=== PATIENT | female | born 1955 | race Caucasian/White ===

== ENCOUNTER 2021-01-21 08:09 | Outpatient (REF) | payer MEDICARE, SELFPAY ==
[2021-01-21 11:55] LABS: Hematocrit 37.1 % (37-47); Hemoglobin 11.9 g/dl (12.0-16.0); Mean Corpuscular HGB Conc 32.1 g/dl (31.0-35.0); Mean Corpuscular Hemoglobin 27.9 pg (27.0-33.0); Mean Corpuscular Volume 86.9 fL (80-98); Platelet Count 496 X10*3/uL (160-400); Red Blood Count 4.27 X10*6/uL (4.20-5.50); Red Cell Distribution Width 14.8 % (11.0-16.0); White Blood Count 6.3 X10*3/uL (4.8-10.8)
[2021-01-21 12:02] LABS: Alanine Aminotransferase 30 U/L (0-31); Albumin Level 4.3 g/dL (3.5-5.0); Alkaline Phosphatase 107 U/L (39-117); Anion Gap 12 (12-20); Aspartate Amino Transferase 24 U/L (5-31); Bilirubin Total 0.7 mg/dL (0.0-1.0); Blood Urea Nitrogen 8 mg/dL (9-16); Calcium 9.4 mg/dL (8.4-10.2); Carbon Dioxide 26 mmol/L (22-29); Chloride 105 mmol/L (96-108); Cholesterol 209 mg/dL; Estimated Glomerular Filt Rate > 60; Glucose Fasting 102 mg/dL (60-99); HDL Cholesterol 49 mg/dL; LDL Cholesterol Calculated 143 mg/dl; Potassium 4.7 mmol/L (3.3-5.1); Sodium 138 mmol/L (135-145); Total Protein 7.2 g/dL (6.5-8.0); Triglycerides 89 mg/dL
[2021-01-21 12:14] LABS: TSH reflex Free T4 1.95 uIU/mL (0.32-4.0); Vitamin D 25-OH Total 52.7 ng/mL (>30)
== END 2021-01-21 08:10 | disposition home or self-care (01) ==
LOC: HO.HMGCLDS 08:09
PROVIDERS: PCP Internal Medicine; Visit Provider Internal Medicine
DX: E55.9 Vitamin D deficiency, unspecified (principal); E78.5 Hyperlipidemia, unspecified
CPT/HCPCS: 36415; 80053; 80061; 82306; 84443; 85027

== ENCOUNTER 2021-07-16 09:05 | Outpatient (REF) | payer MEDICARE, SELFPAY ==
[2021-07-16 11:24] LABS: Hematocrit 38.2 % (37.0-47.0); Hemoglobin 12.2 g/dl (12.0-16.0); Mean Corpuscular HGB Conc 31.9 g/dl (31.0-35.0); Mean Corpuscular Hemoglobin 27.5 pg (27.0-33.0); Mean Corpuscular Volume 86.2 fL (80.0-98.0); Mean Platelet Volume 9.3 fL (9.4-12.3); Platelet Count 440 X10*3/uL (160-400); Red Blood Count 4.43 X10*6/uL (4.20-5.50); Red Cell Distribution Width 14.8 % (11.0-16.0); White Blood Count 7.6 X10*3/uL (4.8-10.8)
[2021-07-16 11:35] LABS: Alanine Aminotransferase 21 U/L (0-31); Albumin Level 4.2 g/dL (3.5-5.0); Alkaline Phosphatase 86 U/L (39-117); Anion Gap 13 (12-20); Aspartate Amino Transferase 20 U/L (5-31); Bilirubin Total 0.3 mg/dL (0.0-1.0); Blood Urea Nitrogen 10 mg/dL (9-16); Calcium 9.6 mg/dL (8.4-10.2); Carbon Dioxide 25 mmol/L (22-29); Chloride 104 mmol/L (96-108); Cholesterol 217 mg/dL; Estimated Glomerular Filt Rate > 60; Glucose Fasting 103 mg/dL (60-99); HDL Cholesterol 63 mg/dL; LDL Cholesterol Calculated 142 mg/dl; Potassium 4.6 mmol/L (3.3-5.1); Sodium 137 mmol/L (135-145); Total Protein 7.2 g/dL (6.5-8.0); Triglycerides 64 mg/dL
[2021-07-16 12:03] LABS: TSH reflex Free T4 1.89 uIU/mL (0.32-4.0)
== END 2021-07-16 09:06 | disposition home or self-care (01) ==
LOC: HO.HMGCLDS 09:05
PROVIDERS: Visit Provider Internal Medicine
DX: E55.9 Vitamin D deficiency, unspecified (principal); E78.5 Hyperlipidemia, unspecified; I10 Essential (primary) hypertension
CPT/HCPCS: 36415; 80053; 80061; 84443; 85027

== ENCOUNTER 2022-01-13 06:21 | Outpatient (REF) | payer MEDICARE, SELFPAY ==
[2022-01-13 11:47] LABS: Alanine Aminotransferase 33 U/L (0-31); Albumin Level 4.3 g/dL (3.5-5.0); Alkaline Phosphatase 101 U/L (39-117); Anion Gap 15 (12-20); Aspartate Amino Transferase 28 U/L (5-31); Bilirubin Total 0.2 mg/dL (0.0-1.0); Blood Urea Nitrogen 8 mg/dL (9-16); Calcium 9.2 mg/dL (8.4-10.2); Carbon Dioxide 25 mmol/L (22-29); Chloride 104 mmol/L (96-108); Cholesterol 174 mg/dL; Estimated Glomerular Filt Rate > 60; Glucose Fasting 107 mg/dL (60-99); HDL Cholesterol 49 mg/dL; LDL Cholesterol Calculated 111 mg/dl; Potassium 4.6 mmol/L (3.3-5.1); Sodium 139 mmol/L (135-145); Total Protein 7.2 g/dL (6.5-8.0); Triglycerides 74 mg/dL
== END 2022-01-13 06:22 | disposition home or self-care (01) ==
LOC: HO.HMGCLDS 06:21
PROVIDERS: PCP Internal Medicine; Visit Provider Internal Medicine
DX: E78.5 Hyperlipidemia, unspecified (principal); I10 Essential (primary) hypertension
CPT/HCPCS: 36415; 80053; 80061

== ENCOUNTER 2022-07-14 06:38 | Outpatient (REF) | payer MEDICARE, SELFPAY ==
[2022-07-14 11:27] LABS: MANUAL DIFF FLAG NO
[2022-07-14 11:37] LABS: Basophils Absolute Auto 0.1 X10*3/uL (0.0-0.2); Basophils Percent Auto 1.1 % (0-2); Eosinophils Absolute Auto 0.3 X10*3/uL (0.0-0.4); Eosinophils Percent Auto 3.6 % (0-4); Hematocrit 37.2 % (37.0-47.0); Hemoglobin 11.8 g/dl (12.0-16.0); Imm Gran Abs Auto 0.02 X10*3/uL (0.00-0.03); Imm Gran Pct Auto 0.3 % (0.0-0.4); Lymphocytes Absolute Auto 3.4 X10*3/uL (1.2-4.9); Lymphocytes Percent Auto 47.7 % (20-40); Mean Corpuscular HGB Conc 31.7 g/dl (31.0-35.0); Mean Corpuscular Hemoglobin 27.4 pg (27.0-33.0); Mean Corpuscular Volume 86.3 fL (80.0-98.0); Mean Platelet Volume 9.7 fL (9.4-12.3); Monocytes Absolute Auto 0.8 X10*3/uL (0.1-1.2); Monocytes Percent Auto 11.1 % (2-11); Neutrophils Absolute Auto 2.6 x10*3/uL (2.0-8.3); Neutrophils Percent Auto 36.2 % (45-73); Platelet Count 487 X10*3/uL (160-400); Red Blood Count 4.31 X10*6/uL (4.20-5.50); Red Cell Distribution Width 15.1 % (11.0-16.0); White Blood Count 7.2 X10*3/uL (4.8-10.8)
[2022-07-14 12:14] LABS: Creatinine Urine 79.42 mg/dL; Microalbum/Creatinine Ratio Ur 12.5 ug/mg cr
[2022-07-14 12:35] LABS: Estimated Average Glucose 128 mg/dL; Hemoglobin A1c % 6.1 %
[2022-07-14 12:40] LABS: Alanine Aminotransferase 29 U/L (0-31); Alkaline Phosphatase 101 U/L (39-117); Anion Gap 11 (12-20); Aspartate Amino Transferase 23 U/L (5-31); Bilirubin Total 0.3 mg/dL (0.0-1.0); Blood Urea Nitrogen 11 mg/dL (9-16); Calcium 9.3 mg/dL (8.4-10.2); Carbon Dioxide 27 mmol/L (22-29); Chloride 107 mmol/L (96-108); Cholesterol 185 mg/dL; Estimated Glomerular Filt Rate > 60; Glucose Fasting 103 mg/dL (60-99); HDL Cholesterol 54 mg/dL; LDL Cholesterol Calculated 118 mg/dl; Potassium 4.5 mmol/L (3.3-5.1); Sodium 140 mmol/L (135-145); Total Protein 6.6 g/dL (6.5-8.0); Triglycerides 67 mg/dL
[2022-07-14 12:45] LABS: TSH reflex Free T4 3.07 uIU/mL (0.32-4.0); Vitamin D 25-OH Total 61.2 ng/mL (>30)
== END 2022-07-14 06:39 | disposition home or self-care (01) ==
LOC: HO.HMGCLDS 06:38
PROVIDERS: PCP Internal Medicine; Visit Provider Internal Medicine
DX: E55.9 Vitamin D deficiency, unspecified (principal); E78.5 Hyperlipidemia, unspecified; M85.80 Other specified disorders of bone density and structure, unspecified site; R73.9 Hyperglycemia, unspecified
CPT/HCPCS: 36415; 80053; 80061; 82043; 82306; 83036; 84443; 85025

== ENCOUNTER 2023-01-19 07:00 | Outpatient (REF) | payer MEDICARE, SELFPAY ==
[2023-01-19 11:15] LABS: MANUAL DIFF FLAG NO
[2023-01-19 11:24] LABS: Basophils Absolute Auto 0.1 X10*3/uL (0.0-0.2); Basophils Percent Auto 0.9 % (0-2); Eosinophils Absolute Auto 0.2 X10*3/uL (0.0-0.4); Eosinophils Percent Auto 3.3 % (0-4); Hematocrit 37.2 % (37.0-47.0); Hemoglobin 11.9 g/dl (12.0-16.0); Imm Gran Abs Auto 0.01 X10*3/uL (0.00-0.03); Imm Gran Pct Auto 0.2 % (0.0-0.4); Lymphocytes Absolute Auto 3.3 X10*3/uL (1.2-4.9); Lymphocytes Percent Auto 52.8 % (20-40); Mean Corpuscular Hemoglobin 27.5 pg (27.0-33.0); Mean Corpuscular Volume 86.1 fL (80.0-98.0); Mean Platelet Volume 9.7 fL (9.4-12.3); Monocytes Absolute Auto 0.9 X10*3/uL (0.1-1.2); Monocytes Percent Auto 13.6 % (2-11); Neutrophils Absolute Auto 1.8 x10*3/uL (2.0-8.3); Neutrophils Percent Auto 29.2 % (45-73); Platelet Count 563 X10*3/uL (160-400); Red Blood Count 4.32 X10*6/uL (4.20-5.50); White Blood Count 6.3 X10*3/uL (4.8-10.8)
[2023-01-19 11:33] LABS: Estimated Average Glucose 123 mg/dL; Hemoglobin A1c % 5.9 % (<6.0)
[2023-01-19 11:39] LABS: Alanine Aminotransferase 26 U/L (0-31); Alkaline Phosphatase 90 U/L (39-117); Anion Gap 13 (12-20); Aspartate Amino Transferase 24 U/L (5-31); Bilirubin Total 0.4 mg/dL (0.0-1.0); Blood Urea Nitrogen 9 mg/dL (9-16); Calcium 9.4 mg/dL (8.4-10.2); Carbon Dioxide 25 mmol/L (22-29); Chloride 105 mmol/L (96-108); Cholesterol 179 mg/dL (<200); Estimated Glomerular Filt Rate > 60; Glucose Fasting 103 mg/dL (60-99); HDL Cholesterol 53 mg/dL (>40); LDL Cholesterol Calculated 110 mg/dL (<100); Potassium 4.2 mmol/L (3.3-5.1); Sodium 139 mmol/L (135-145); Total Protein 7.2 g/dL (6.5-8.0); Triglycerides 80 mg/dL (<150)
== END 2023-01-19 07:01 | disposition home or self-care (01) ==
LOC: HO.HMGCLDS 07:00
PROVIDERS: PCP Internal Medicine; Visit Provider Internal Medicine
DX: R73.9 Hyperglycemia, unspecified (principal); E78.5 Hyperlipidemia, unspecified
CPT/HCPCS: 36415; 80053; 80061; 83036; 85025

== ENCOUNTER 2023-01-27 07:54 | Outpatient (AMB) | payer MEDICARE, SELFPAY ==
[2023-01-27 08:09] VITALS: BP 130/70; PULSE 63; O2SAT 99; BMI 28.3
--- NOTE | 2023-01-27 08:09 | MHC.PC.OV ---
Vital Signs 01/27/23 08:09 Height 4 ft 11 in Weight 140 lb BMI 28.3 BP 130/70 Blood Pressure Location Lt brachial Position Sitting Pulse 63 Pulse Source Pulse Oximeter Pulse Oximetry (%) 99 Oxygen Delivery Method Room Air Intake Visit Reasons: Annual Physical Intake Note: Pt is here today for PE. Allergies wheat Allergy (Mild, Verified 01/27/23 08:12) Ciliac disease pravastatin Adverse Reaction (Verified 01/27/23 08:12) headaches Medication List - Last Reconciled 01/27/23 by Nasrin Vidal MD atorvastatin 20 mg PO DAILY magnesium 250 mg PO DAILY meloxicam 15 mg PO DAILY PRN Tobacco use date assessed: 01/27/23 Fall risk assessment: No Falls in past year Last assessed Fall Risk: 01/27/23 Dental Screening Dental Screen Date: 01/27/23 Did you have a dental visit in the last 12 months?: Yes Did you have a dental problem in the last 6 months where you did not have access to dental care?: No Was dental information given to patient?: Patient has dentist HPI Annual Physical HPI Details Pt presents for PE. She complains of chronic left hand tingling and numbness when holding a book or driving. 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 Patient had right carpal tunnel surgery a few years ago. [facility] Medical History Abnormal mammogram of both breasts Annual physical exam Bladder incontinence Hyperlipidemia Arthralgia Postmenopausal Osteopenia Vitamin D deficiency Degenerative joint disease (DJD) of lumbar spine Normal Pap smear Mammogram normal Normal colonoscopy Adult celiac disease Surgical History History of bladder suspension procedure Knee joint replacement status History of carpal tunnel surgery H/O rotator cuff surgery History of left knee replacement Family History Mother Diabetes Breast cancer Father Heart problem Social History Household Members Other:: , 3 daughters, works as a payroll secretary in [employer] Housing: House Patient Tobacco Use Status: Former Tobacco user Quit Date: 1983 e-Cigarette/Vaping Use: Never Used Current occupational status: retired Cognitive needs: No Hearing needs: No Vision needs: Yes Questionnaire PHQ-9 Over the last 2 weeks, how often have you been bothered by any of the following problems? 1. Little interest or pleasure in doing things: not at all 2. Feeling down, depressed, or hopeless: not at all 3. Trouble falling or staying asleep, or sleeping too much: not at all 4. Feeling tired or having little energy: not at all 5. Poor appetite or overeating: not at all 6. Feeling bad about yourself - or that you are a failure or have let yourself or your family down: not at all 7. Trouble concentrating on things, such as reading the newspaper or watching television: not at all 8. Moving or speaking so slowly that other people could have noticed. Or the opposite - being so fidgety or restless that you have been moving around a lot more than usual: not at all 9. Thoughts that you would be better off or of hurting yourself in some way: not at all Total score: 0 Depression Screening Interpretation: Negative Depression Screening Done: Yes Source: Developed by Drs. Rey Curtis, Joanie Caraballo, Malick Millan and colleagues, with an educational celia from [employer]. Thrive Questionnaire Date Thrive assessed: 01/27/23 I am a: Patient What is your living situation today?: I have a steady place to live Within the past 12 months, did the food you bought not last and you didn't have the money to get more?: Never true Within the past 12 months, did you worry whether your food would run out before you got money to buy more?: Never true Do you have trouble paying for medicines?: No Do you have trouble getting transportation to medical appointments?: No Do you have trouble paying your heating and electricity bill?: No Do you have trouble taking care of your child, family member or friend?: No Do you have trouble with day-to-day activities such as bathing, preparing meals, shopping, managing finances, etc.?: No Are you currently unemployed and looking for a job?: No Are you interested in more education?: No Please select the resources that you would like help with: None CHRISTOPH-7 AMB Questionnaire CHRISTOPH-7 Date CHRISTOPH - 7 assessed: 01/27/23 Feeling nervous, anxious, or on edge: 0 = Not at all Not being able to stop or control worryin = Not at all Worrying too much about different things: 0 = Not at all Trouble relaxin = Not at all Being so restless that it is hard to sit still: 0 = Not at all Becoming easily annoyed or irritable: 0 = Not at all Feeling afraid as if something awful might happen: 0 = Not at all Total CHRISTOPH-7 score (0-4 normal; 5-9 mild; 10-14 moderate; 15-21 severe): 0 Source: Developed by Drs. Rey Curtis, Joanie Caraballo, Malick Millan and colleagues, with an educational celia from [employer]. Review of Systems Const All systems reviewed & are unremarkable except as noted in HPI and below Reports no additional complaints Eyes Reports no additional complaints ENT Reports no additional complaints Card Reports no additional complaints Resp Reports no additional complaints GI Reports no additional complaints Reports no additional complaints Musc Reports no additional complaints Physical exam (Primary Care) Vital Signs: Last Vital Signs Pulse 63 01/27/23 08:09 BP 140/70 H 01/27/23 08:09 Pulse Ox 99 01/27/23 08:09 Oxygen Delivery Method Room Air 01/27/23 08:09 BMI result Body Mass Index 28.3 Tobacco/Smoking Status: Tobacco use Status Tobacco use date assessed 01/27/23 01/27/23 08:14 Patient Tobacco Use Status Former Tobacco user 01/27/23 08:09 e-Cigarette/Vaping Use Never Used 01/27/23 08:14 PHQ-9: PHQ-9 Score PHQ-9: Total score 0 01/27/23 08:16 Depression Screening Interpretation: Negative Thrive Assessment: Date of Thrive Assessment Date Thrive assessed 01/27/23 01/27/23 08:16 Const General: no acute distress HENMT Ears: hearing grossly normal bilaterally Mouth: Normal oral and palatal mucosa present Eyes General: appearance normal, both eyes and all related structures Resp Effort & Inspection: normal respiratory effort Auscultation: clear to auscultation bilaterally Cardio Rhythm: regular rhythm Heart sounds: S1 normal heart sound present and S2 normal heart sound present GI Inspection: Yes normal to inspection Palpation (GI): Soft to palpation Percussion: Yes normal to percussion Auscultation: normal bowel sounds Neuro Sensory Exam: Upper extremity sensory exam abnormal (L wrist Tinel positive) Extrem General: Yes no clubbing, cyanosis or edema Left upper extremity: wrist (Phalen's positive L wrist) Assessment and Plan Assessment & Plan (1) Carpal tunnel syndrome of left wrist: Code(s): G56.02 - Carpal tunnel syndrome, left upper limb Plan: Refer for nerve conduction study, wearing wrist splint at night was recommended (2) Annual physical exam: Code(s): Z00.00 - Encounter for general adult medical examination without abnormal findings Plan: Well-balanced diet and regular physical activity discussed with the patient (3) Hyperlipidemia: Comment: Patient cannot tolerate multiple statins. She can tolerate atorvastatin QOD Code(s): E78.5 - Hyperlipidemia, unspecified Plan: Continue atorvastatin (4) Hyperglycemia: Code(s): R73.9 - Hyperglycemia, unspecified Plan: A1c is 5.9, continue ADA diet regular exercise and weight loss (5) Mammogram normal: Comment: 2020Alicia (6) Normal colonoscopy: Comment: at 61 Orders: Orders NE nerve conduction velocity Today G56.02 - Carpal tunnel syndrome, left upper limb Comprehensive Met. Panel 365 Days E78.5 - Hyperlipidemia, unspecified, R73.9 - Hyperglycemia, unspecified, Z00.00 - Encounter for general adult medical examination without abnormal findings Lipid Panel 365 Days E78.5 - Hyperlipidemia, unspecified, R73.9 - Hyperglycemia, unspecified, Z00.00 - Encounter for general adult medical examination without abnormal findings Complete Blood Count Auto Diff 365 Days E78.5 - Hyperlipidemia, unspecified, R73.9 - Hyperglycemia, unspecified, Z00.00 - Encounter for general adult medical examination without abnormal findings Microalbumin, Random (w Creat) 365 Days E78.5 - Hyperlipidemia, unspecified, R73.9 - Hyperglycemia, unspecified, Z00.00 - Encounter for general adult medical examination without abnormal findings Hemoglobin A1c 365 Days E78.5 - Hyperlipidemia, unspecified, R73.9 - Hyperglycemia, unspecified, Z00.00 - Encounter for general adult medical examination without abnormal findings TSH reflex Free T4 365 Days E78.5 - Hyperlipidemia, unspecified, R73.9 - Hyperglycemia, unspecified, Z00.00 - Encounter for general adult medical examination without abnormal findings Coding Level of Care Code Est Pt Prev Care >65y(25610) Diagnoses Carpal tunnel syndrome of left wrist G56.02 Annual physical exam Z00.00 Hyperlipidemia E78.5 Hyperglycemia R73.9 Mammogram normal Normal colonoscopy
== END 2023-01-27 08:53 | disposition home or self-care (01) ==
PROVIDERS: Visit Provider Internal Medicine
DX: G56.02 Carpal tunnel syndrome, left upper limb (principal); Z00.00 Encounter for general adult medical examination without abnormal findings; E78.5 Hyperlipidemia, unspecified; R73.9 Hyperglycemia, unspecified
CPT/HCPCS: 99397

== ENCOUNTER 2023-02-10 08:52 | Outpatient (REF) | payer MEDICARE, SELFPAY ==
--- NOTE | 2023-02-10 09:05 | EMG_ITS ---
Left median and ulnar motor and sensory studies were performed. Left radial and median and lateral antecubital brachial sensory studies were performed and needle examination was performed. IMPRESSION: Mild to moderate left median neuropathy across carpal tunnel. MD BRAEDEN Prieto/ALLEY / [phone]
== END 2023-02-10 08:53 | disposition home or self-care (01) ==
LOC: HO.NEURO 08:52
PROVIDERS: Visit Provider Internal Medicine
DX: G56.02 Carpal tunnel syndrome, left upper limb (principal)
CPT/HCPCS: 95886; 95910

== ENCOUNTER 2023-11-12 09:23 | Outpatient (AMB) | payer MEDICARE, SELFPAY ==
[2023-11-12 11:23] VITALS: BP 150/80; PULSE 65; TEMP 36.6; O2SAT 96
--- NOTE | 2023-11-12 11:23 | AM.OFFWIN_ITS ---
Intake Vital Signs 11/12/23 11:23 Height 4 ft 11 in BP 150/80 H Blood Pressure Location Lt brachial Position Sitting Pulse 65 Pulse Source Pulse Oximeter Temp 97.8 F Temp Source Temporal Artery Scan Pulse Oximetry (%) 96 Oxygen Delivery Method Room Air Intake Visit Reasons: EP RT knee injury Intake Note: pt is here for right knee pain due to injury Patient Tobacco Use Status: Former Tobacco user Allergies wheat Allergy (Mild, Verified 11/12/23 11:24) Ciliac disease pravastatin Adverse Reaction (Verified 11/12/23 11:24) headaches Do you need a note to return to daycare/school/sports/work: No HPI EP RT knee injury HPI Details Patient is is a 68-year-old female comes to the walk-in clinic complaining of right knee pain that just started this morning. She reports a sharp sensation to the upper aspect of the right knee upon getting out of bed, when flexing the extremity. She has only minimal discomfort when bearing weight on the extremity, however flexion greater than 90 degrees increases her pain. She denies injury to the knee or any out of ordinary trauma to the knee that occurred yesterday or prior to this. She does report some likely degenerative issues, and reports left knee replacement 5 years ago. No medication, heating or icing, elevation or other treatment. No swelling or warmth, redness, fever or chills, weakness or dizziness, or other significant associated symptoms. [facility] [place] Medical History Abnormal mammogram of both breasts Annual physical exam Bladder incontinence Hyperlipidemia Arthralgia Postmenopausal Osteopenia Vitamin D deficiency Degenerative joint disease (DJD) of lumbar spine Normal Pap smear Mammogram normal Normal colonoscopy Adult celiac disease Surgical History History of bladder suspension procedure Knee joint replacement status History of carpal tunnel surgery H/O rotator cuff surgery History of left knee replacement Family History Mother Diabetes Breast cancer Father Heart problem Social History Household Members Other:: , 3 daughters, works as a clerk secretary in [employer] Housing: House Patient Tobacco Use Status: Former Tobacco user e-Cigarette/Vaping Use: Never Used Current occupational status: retired Cognitive needs: No Hearing needs: No Vision needs: Yes Review of Systems Const All systems reviewed & are unremarkable except as noted in HPI and below Physical Exam Vital Signs: Last Vital Signs Temp 97.8 F 11/12/23 11:23 Pulse 65 11/12/23 11:23 BP 150/80 H 11/12/23 11:23 Pulse Ox 96 11/12/23 11:23 Oxygen Delivery Method Room Air 11/12/23 11:23 Extrem Other: Patient has no visible trauma to the right knee, and there is no edema erythema or warmth to the right knee or calf or lower leg area. No palpable cord in the calf, or mass to the right upper or lower leg. She has full extension, but limited flexion to 90 degrees due to end range tenderness to the inner knee. Anterior and posterior drawer tests are negative, and there is no instability with varus or valgus stress. She has no pain to palpation of the patellar ligament, anterior joint line, or posterior joint line, or medial or lateral joint line, or adjacent on both sides to the patella, with no patellar tenderness. She has no cyanosis or edema or other color changes, and she is neurovascularly intact distally with no pedal edema, and gait is nonantalgic. Assessment & Plan Assessment & Plan (1) Right knee pain: Code(s): M25.561 - Pain in right knee Qualifiers: Chronicity: acute Qualified Code(s): M25.561 - Pain in right knee Plan Patient is a 68-year-old female comes to the walk-in clinic complaining of acute right knee pain that just started this morning. She reports a sharp sensation to the upper aspect of the right knee upon getting out of bed. She has only minimal discomfort when bearing weight on the extremity, however flexion greater than 90 degrees increases her pain. There is no instability noted to the joint, and no redness erythema warmth or swelling or palpable cord or mass to the area or surrounding area that would indicate a DVT or muscle injury. Plain film x- ray shows no acute injury, but mild to moderate degenerative changes are noted. I think she might have a flare-up of arthritis that is the likely etiology for symptoms. She might benefit from a course of meloxicam, which I wrote for her today. She declined Raymond wrap to the joint, but states that she has an elastic sleeve brace that she can use when she gets home. She prefers to follow up with her primary care to discuss MRI, or she might be a candidate for physical the rapy. I advised that she monitor it and follow up emergency if she develops any swelling, erythema or edema to the joint or left lower leg, or other worrisome symptoms. Orders: Orders XR knee RT 4V 11/12/23 M25.561 - Pain in right knee Medications: New meloxicam take with food 15 mg PO DAILY 30 tabs 0RF Coding Level of Care Code Est Pt Level 4 (53355) Diagnoses Acute pain of right knee M25.561 Chronicity: acute
== END 2023-11-12 15:05 | disposition home or self-care (01) ==
PROVIDERS: PCP Internal Medicine; Visit Provider Physician Assistant Medical
DX: M25.561 Pain in right knee (principal)
CPT/HCPCS: 99051; 99214

== ENCOUNTER 2023-11-12 12:05 | Outpatient (REF) | payer MEDICARE, SELFPAY ==
--- NOTE | ~2023-11-12 | XR_ITS ---
EXAMINATION: XR KNEE, RIGHT CLINICAL INFORMATION: Pain in the right knee. COMPARISON: None available. TECHNIQUE: AP, lateral, and both oblique views of the right knee. FINDINGS: Bones are osteopenic. Moderate patellofemoral compartment osteoarthritis with joint space narrowing marginal osteophytes. More mild osteoarthritis in the lateral and medial compartments. No fractures. No joint effusion. Soft tissues are unremarkable. XR/XR knee RT 4V IMPRESSION: Moderate patellofemoral compartment osteoarthritis. More mild osteoarthritis in the medial and lateral compartments.
== END 2023-11-12 12:06 | disposition home or self-care (01) ==
LOC: HO.HMGCX 12:05
PROVIDERS: PCP Internal Medicine; Visit Provider Physician Assistant Medical
DX: M25.561 Pain in right knee (principal)
CPT/HCPCS: 73564

== ENCOUNTER 2024-01-19 06:16 | Outpatient (REF) | payer MEDICARE, SELFPAY ==
[2024-01-19 10:13] LABS: MANUAL DIFF FLAG NO
[2024-01-19 10:19] LABS: Basophils Absolute Auto 0.1 X10*3/uL (0.0-0.2); Basophils Percent Auto 1.1 % (0-2); Eosinophils Absolute Auto 0.3 X10*3/uL (0.0-0.4); Eosinophils Percent Auto 4.5 % (0-4); Hematocrit 38.2 % (37.0-47.0); Hemoglobin 12.2 g/dl (12.0-16.0); Imm Gran Abs Auto 0.02 X10*3/uL (0.00-0.03); Imm Gran Pct Auto 0.3 % (0.0-0.4); Lymphocytes Absolute Auto 3.3 X10*3/uL (1.2-4.9); Lymphocytes Percent Auto 44.1 % (20-40); Mean Corpuscular HGB Conc 31.9 g/dl (31.0-35.0); Mean Corpuscular Volume 87.8 fL (80.0-98.0); Mean Platelet Volume 9.6 fL (9.4-12.3); Monocytes Absolute Auto 0.9 X10*3/uL (0.1-1.2); Monocytes Percent Auto 11.8 % (2-11); Neutrophils Absolute Auto 2.9 x10*3/uL (2.0-8.3); Neutrophils Percent Auto 38.2 % (45-73); Platelet Count 537 X10*3/uL (160-400); Red Blood Count 4.35 X10*6/uL (4.20-5.50); Red Cell Distribution Width 15.3 % (11.0-16.0); White Blood Count 7.5 X10*3/uL (4.8-10.8)
[2024-01-19 11:04] LABS: Estimated Average Glucose 126 mg/dL; Hemoglobin A1C 128.6482 umol/L; Total Hemoglobin (HGBA1C) 3087.6064 umol/L
[2024-01-19 11:06] LABS: Alanine Aminotransferase 22 U/L (0-31); Albumin Level 4.1 g/dL (3.5-5.0); Alkaline Phosphatase 89 U/L (39-117); Anion Gap 11 (12-20); Aspartate Amino Transferase 22 U/L (5-31); Bilirubin Total 0.3 mg/dL (0.0-1.0); Blood Urea Nitrogen 10 mg/dL (9-16); Calcium 9.4 mg/dL (8.4-10.2); Carbon Dioxide 27 mmol/L (22-29); Chloride 106 mmol/L (96-108); Cholesterol 165 mg/dL (<200); Estimated Glomerular Filt Rate > 60; Glucose Random 98 mg/dL (60-115); HDL Cholesterol 55 mg/dL (>40); LDL Cholesterol Calculated 97 mg/dL (<100); Sodium 140 mmol/L (135-145); Total Protein 7.1 g/dL (6.5-8.0); Triglycerides 65 mg/dL (<150)
[2024-01-19 11:21] LABS: Creatinine Urine 56.49 mg/dL; Microalbumin Urine < 5.0 mg/L
[2024-01-19 11:26] LABS: TSH reflex Free T4 3.11 uIU/mL (0.32-4.0)
== END 2024-01-19 06:17 | disposition home or self-care (01) ==
LOC: HO.HMGCLDS 06:16
PROVIDERS: PCP Internal Medicine; Visit Provider Internal Medicine
DX: Z00.00 Encounter for general adult medical examination without abnormal findings (principal); E78.5 Hyperlipidemia, unspecified; R73.9 Hyperglycemia, unspecified
CPT/HCPCS: 36415; 80053; 80061; 82043; 82570; 83036; 84443; 85025

== ENCOUNTER 2024-01-31 08:02 | Outpatient (AMB) | payer MEDICARE, SELFPAY ==
--- NOTE | 2024-01-31 08:04 | MHC.PC.OV ---
Vital Signs 01/31/24 08:05 Height 4 ft 11 in Weight 128 lb BMI 25.9 BP 128/66 Blood Pressure Location Rt brachial Position Sitting Pulse 71 Pulse Source Pulse Oximeter Pulse Oximetry (%) 97 Oxygen Delivery Method Room Air Intake Visit Reasons: Annual PE Intake Note: Pt is here today for PE. Allergies wheat Allergy (Mild, Verified 01/31/24 08:07) Ciliac disease pravastatin Adverse Reaction (Verified 01/31/24 08:07) headaches Medication List - Last Reconciled 01/31/24 by Nasrin Vidal MD atorvastatin 20 mg PO DAILY magnesium 250 mg PO DAILY meloxicam 15 mg PO DAILY Tobacco use date assessed: 01/31/24 Fall risk assessment: 1 Fall in past year Last assessed Fall Risk: 01/31/24 Dental Screening Dental Screen Date: 01/31/24 Did you have a dental visit in the last 12 months?: Yes Did you have a dental problem in the last 6 months where you did not have access to dental care?: No Was dental information given to patient?: Patient has dentist HPI Annual PE HPI Details Pt presents for PE. [facility] Medical History Abnormal mammogram of both breasts Annual physical exam Bladder incontinence Hyperlipidemia Arthralgia Postmenopausal Osteopenia Vitamin D deficiency Degenerative joint disease (DJD) of lumbar spine Normal Pap smear Mammogram normal Normal colonoscopy Adult celiac disease Surgical History History of bladder suspension procedure Knee joint replacement status History of carpal tunnel surgery H/O rotator cuff surgery History of left knee replacement Family History Mother Diabetes Breast cancer Father Heart problem Social History Household Members Other:: , 3 daughters, works as a sales secretary in [employer] Housing: House Patient Tobacco Use Status: Former Tobacco user e-Cigarette/Vaping Use: Never Used service: No Current occupational status: retired Cognitive needs: No Hearing needs: No Vision needs: Yes Questionnaire PHQ-9 Over the last 2 weeks, how often have you been bothered by any of the following problems? 1. Little interest or pleasure in doing things: not at all 2. Feeling down, depressed, or hopeless: not at all 3. Trouble falling or staying asleep, or sleeping too much: not at all 4. Feeling tired or having little energy: not at all 5. Poor appetite or overeating: not at all 6. Feeling bad about yourself - or that you are a failure or have let yourself or your family down: not at all 7. Trouble concentrating on things, such as reading the newspaper or watching television: not at all 8. Moving or speaking so slowly that other people could have noticed. Or the opposite - being so fidgety or restless that you have been moving around a lot more than usual: not at all 9. Thoughts that you would be better off or of hurting yourself in some way: not at all Total score: 0 Depression Screening Interpretation: Negative Depression Screening Done: Yes [id number] - PHQ-9 Billing: Yes Source: Developed by Drs. Rey Curtis, Joanie Caraballo, Malick Millan and colleagues, with an educational celia from [employer] [place]. Thrive Questionnaire Date Thrive assessed: 01/31/24 I am a: Patient What is your living situation today?: I have a steady place to live Within the past 12 months, did the food you bought not last and you didn't have the money to get more?: Never true Within the past 12 months, did you worry whether your food would run out before you got money to buy more?: Never true Do you have trouble paying for medicines?: No Do you have trouble getting transportation to medical appointments?: No Do you have trouble paying your heating and electricity bill?: No Do you have trouble taking care of your child, family member or friend?: No Do you have trouble with day-to-day activities such as bathing, preparing meals, shopping, managing finances, etc.?: No Are you currently unemployed and looking for a job?: No Are you interested in more education?: No Please select the resources that you would like help with: None Currently or been in a relationship where the following occur: No concerns reported THRIVE Score: 0 AUDIT C Alcohol Use Questionnaire (AUDIT-C) 1. How often do you have a drink containing alcohol?: Never 3. How often do you have six or more drinks on one occasion?: Never Total Score: 0 CHRISTOPH-7 AMB Questionnaire CHRISTOPH-7 Date CHRISTOPH - 7 assessed: 01/31/24 Feeling nervous, anxious, or on edge: 0 = Not at all Not being able to stop or control worryin = Not at all Worrying too much about different things: 0 = Not at all Trouble relaxin = Not at all Being so restless that it is hard to sit still: 0 = Not at all Becoming easily annoyed or irritable: 0 = Not at all Feeling afraid as if something awful might happen: 0 = Not at all Total CHRISTOPH-7 score (0-4 normal; 5-9 mild; 10-14 moderate; 15-21 severe): 0 Source: Developed by Drs. Rey Curtis, Joanie Caraballo, Malick Millan and colleagues, with an educational celia from [employer] [place]. CHRISTOPH-7 Assessment Billing CHRISTOPH-7 Assessment Tool: CHRISTOPH-7 Assessment 77670 Review of Systems Const All systems reviewed & are unremarkable except as noted in HPI and below Eyes Reports no additional complaints ENT Reports no additional complaints Card Reports no additional complaints Resp Reports no additional complaints GI Reports no additional complaints Reports no additional complaints Physical exam (Primary Care) Vital Signs: Last Vital Signs Pulse 71 01/31/24 08:05 BP 128/66 01/31/24 08:05 Pulse Ox 97 01/31/24 08:05 Oxygen Delivery Method Room Air 01/31/24 08:05 BMI result Body Mass Index 25.9 Tobacco/Smoking Status: Tobacco use Status Tobacco use date assessed 01/31/24 01/31/24 08:13 Patient Tobacco Use Status Former Tobacco user 01/31/24 08:13 e-Cigarette/Vaping Use Never Used 01/31/24 08:13 PHQ-9: PHQ-9 Score PHQ-9: Total score 0 01/31/24 08:13 Depression Screening Interpretation: Negative Thrive Assessment: Date of Thrive Assessment Date Thrive assessed 01/31/24 01/31/24 08:13 Currently or been in a relationship where the following occur: No concerns reported Const General: no acute distress HENMT Head: Yes normal to inspection Ears: hearing grossly normal bilaterally Mouth: Normal oral and palatal mucosa present Throat: Yes posterior oropharynx normal Eyes General: appearance normal, both eyes and all related structures Neck Neck: Yes no lymphadenopathy and Yes supple Resp Effort & Inspection: normal respiratory effort Auscultation: clear to auscultation bilaterally Cardio Rhythm: regular rhythm Heart sounds: S1 normal heart sound present and S2 normal heart sound present GI Inspection: Yes normal to inspection Palpation (GI): Soft to palpation Percussion: Yes normal to percussion Auscultation: normal bowel sounds Coding Level of Care Code Est Pt Prev Care >65y(88348) Diagnoses Osteopenia M85.80 Annual physical exam Z00.00 Hyperglycemia R73.9 Hyperlipidemia E78.5 Postmenopausal Z78.0 Vitamin D deficiency E55.9 Additional Codes CHRISTOPH-7 Assessment Billing - CHRISTOPH-7 Assessment Tool: CHRISTOPH-7 Assessment [id number] ([id number]) Assessment & Plan Assessment & Plan (1) Osteopenia: Comment: DEXA 2020 Code(s): M85.80 - Other specified disorders of bone density and structure, unspecified site Category: Medical Plan: PATIENT WILL SCHEDULE DEXA (2) Annual physical exam: Code(s): Z00.00 - Encounter for general adult medical examination without abnormal findings Category: Medical Plan: Well-balanced diet regular physical activity discussed with the patient. She is up-to-date with colonoscopy and mammogram (3) Hyperglycemia: Code(s): R73.9 - Hyperglycemia, unspecified Category: Medical Plan: A1c is 6.0, ADA diet increase physical activity discussed with the patient (4) Hyperlipidemia: Comment: Patient cannot tolerate multiple statins. She can tolerate atorvastatin QOD Code(s): E78.5 - Hyperlipidemia, unspecified Category: Medical Plan: cont statin (5) Postmenopausal: Code(s): Z78.0 - Asymptomatic menopausal state Category: Medical Plan: check DEXA (6) Vitamin D deficiency: Code(s): E55.9 - Vitamin D deficiency, unspecified Category: Medical Plan: Continue vitamin D3 Orders: Orders XR DEXA axial skeleton Today M85.80 - Other specified disorders of bone density and structure, unspecified site, Z78.0 - Asymptomatic menopausal state Comprehensive [place]. Panel Fast 1 Year E55.9 - Vitamin D deficiency, unspecified, E78.5 - Hyperlipidemia, unspecified, R73.9 - Hyperglycemia, unspecified, Z00.00 - Encounter for general adult medical examination without abnormal findings Lipid Panel 1 Year E55.9 - Vitamin D deficiency, unspecified, E78.5 - Hyperlipidemia, unspecified, R73.9 - Hyperglycemia, unspecified, Z00.00 - Encounter for general adult medical examination without abnormal findings TSH reflex Free T4 1 Year E55.9 - Vitamin D deficiency, unspecified, E78.5 - Hyperlipidemia, unspecified, R73.9 - Hyperglycemia, unspecified, Z00.00 - Encounter for general adult medical examination without abnormal findings Complete Blood Count Auto Diff 1 Year E55.9 - Vitamin D deficiency, unspecified, E78.5 - Hyperlipidemia, unspecified, R73.9 - Hyperglycemia, unspecified, Z00.00 - Encounter for general adult medical examination without abnormal findings Vitamin D 25-OH Total 1 Year E55.9 - Vitamin D deficiency, unspecified, E78.5 - Hyperlipidemia, unspecified, R73.9 - Hyperglycemia, unspecified, Z00.00 - Encounter for general adult medical examination without abnormal findings Hemoglobin A1c 1 Year E55.9 - Vitamin D deficiency, unspecified, E78.5 - Hyperlipidemia, unspecified, R73.9 - Hyperglycemia, unspecified, Z00.00 - Encounter for general adult medical examination without abnormal findings
[2024-01-31 08:05] VITALS: BP 128/66; PULSE 71; O2SAT 97; BMI 25.9
== END 2024-01-31 08:54 | disposition home or self-care (01) ==
LOC: HO.HMCC 08:03
PROVIDERS: PCP Internal Medicine; Visit Provider Internal Medicine
DX: M85.80 Other specified disorders of bone density and structure, unspecified site (principal); Z00.00 Encounter for general adult medical examination without abnormal findings; R73.9 Hyperglycemia, unspecified; E78.5 Hyperlipidemia, unspecified; Z78.0 Asymptomatic menopausal state; E55.9 Vitamin D deficiency, unspecified

== ENCOUNTER → 2024-01-31 08:02 | Outpatient (BNVA) | payer MEDICARE, SELFPAY | PROVIDERS: PCP Internal Medicine; Visit Provider Internal Medicine | DX: Z00.01 Encounter for general adult medical examination with abnormal findings (principal); M85.80 Other specified disorders of bone density and structure, unspecified site; R73.9 Hyperglycemia, unspecified; E78.5 Hyperlipidemia, unspecified; E55.9 Vitamin D deficiency, unspecified; Z78.0 Asymptomatic menopausal state | CPT/HCPCS: 96127; 99397 ==

== ENCOUNTER 2025-01-30 06:16 | Outpatient (REF) | payer MEDICARE, SELFPAY ==
--- OUTSIDE RECORDS SUMMARY | 2025-01-30 06:20 | XMS_ITS ---
Author Name [facility] Organization Unknown History of Medication Use Medication Directions Dispensed Refills Start Date End Date [facility] meloxicam 15 mg tablet Take 1 tablet every day by oral route as needed, for pain. 12/30/2023 active acetaminophen 500 mg tablet TAKE 1 TABLET BY MOUTH EVERY 6 TO 8 HOURS NEEDED FOR PAIN 4 completed azithromycin 250 mg tablet TAKE 2 TABLETS BY MOUTH FOR 1 DAY THEN TAKE 1 TABLET BY MOUTH DAILY FOR 4 DAYS 4 completed ibuprofen 600 mg tablet TAKE 1 TABLET BY MOUTH THREE TIMES DAILY WITH MEALS. MAX 2400 MG DAILY 4 completed oxycodone 5 mg tablet TAKE 1 TABLET BY MOUTH EVERY 6 HOURS NEEDED FOR PAIN 4 completed prednisone 20 mg tablet TAKE 1 TABLET BY MOUTH TWICE DAILY FOR 5 DAYS 4 completed sulfamethoxazole 400 mg-trimethoprim 80 mg tablet TAKE 1 TABLET BY MOUTH TWICE DAILY FOR 5 DAYS 4 completed meloxicam 15 mg tablet active albuterol sulfate HFA 90 mcg/actuation aerosol inhaler active amoxicillin 500 mg tablet TAKE 4 TABLETS BY MOUTH 1 HOUR BEFORE DENTAL APPOINTMENT active atorvastatin 20 mg tablet TAKE 1 TABLET BY MOUTH DAILY active Problems Problem Status Onset Date Problem Type Date of Resoluti on Source Closed fracture of tibial tuberosity active 2023-12-30 ProblemAct [facility] Pain of right knee region active 2023-11-29 ProblemAct [facility] Pain of left knee joint active 2022-12-22 ProblemAct [facility] Encounters Encounter Type Encounter Reason Primary Diagnosis Location Date Ambulatory [facility] 04/13/2024 Ambulatory [facility] 03/09/2024 Ambulatory [facility] 02/06/2024 Ambulatory [facility] 02/03/2024 Ambulatory [facility] 02/03/2024 Ambulatory [facility] 02/03/2024 Ambulatory [facility] 01/02/2024 Ambulatory [facility] 12/30/2023 Ambulatory [facility] 12/30/2023 Ambulatory [facility] 12/29/2023 Ambulatory [facility] 12/28/2023 Ambulatory [facility] 11/30/2023 Ambulatory [facility] 11/29/2023 Ambulatory [facility] 11/15/2023 Ambulatory [facility] 12/16/2022 Ambulatory [facility] 12/15/2022 Ambulatory [facility] 12/15/2022 Ambulatory [facility] 12/15/2022
--- OUTSIDE RECORDS SUMMARY | 2025-01-30 06:20 | XMS_ITS | Clinical Summary ---
Author Organization [facility] Address [address] [place] [address] Care Team Providers Care Security Alarm Installer Name Role Phone Nasrin Vidal MD Primary Care Provider [phone] Allergies Active Allergy Reactions Criticality Noted Date Comments Wheat Extract 06/16/2019 Celiacs Dz Medications Medication Sig Dispensed Refills Start Date End Date Status aspirin EC 81 MG tablet Take 81 mg by mouth daily. 0 Active ALPRAZolam (XANAX) 0.25 MG tablet alprazolam 0.25 mg tablet 0 Active benzonatate (TESSALON) 200 MG capsule benzonatate 200 mg capsule 0 Active fluticasone (FLONASE) 50 MCG/ACT nasal spray fluticasone propionate 50 mcg/actuation nasal spray,suspension 0 Active raNITIdine (ZANTAC) 150 MG tablet ranitidine 150 mg tablet 0 Active ACETAMINOPHEN EXTRA STRENGTH 500 MG tablet Take 500 mg by mouth 3 (three) times a day. 0 02/05/2019 Active celecoxib (CeleBREX) 200 MG capsule Take 200 mg by mouth daily. 0 02/05/2019 Active meloxicam (MOBIC) 15 MG tablet Take 1 tablet (15 mg total) by mouth daily. 30 tablet 2 07/17/2019 Active Cholecalciferol (VITAMIN D) 50 MCG (2000 UT) tablet Take 2,000 Units by mouth. 0 11/19/2019 Active atorvastatin (LIPITOR) tablet 20 mg Take 20 mg by mouth daily. 0 10/26/2021 Active meloxicam (MOBIC) 15 MG tablet Take 1 tablet (15 mg total) by mouth daily. 30 tablet 3 12/15/2021 Active amoxicillin (AMOXIL) 500 MG tablet Take 4 tabs 1 hour prior to dental appointment 20 tablet 3 12/15/2021 Active Active Problems Problem Noted Date Diagnosed Date Postop check 02/07/2019 Arthritis of knee, left 04/14/2018 Family History Medical History Relation Name Comments Heart disease Father Hypertension Father Diabetes Mother Hypertension Mother Diabetes Sister Relation Name Status Comments Father Mother Sister Social History Tobacco Use Types Packs/Day Years Used Date Smoking Tobacco: Never Assessed Sex and Gender Information Value Date Recorded Sex Assigned at Not on file Gender Identity Not on file Sexual Orientation Not on file Job Start Date Occupation Industry Not on file Not on file Not on file Last Filed Vital Signs Vital Sign Reading Time Taken Comments Blood Pressure - - Pulse - - Temperature - - Respiratory Rate - - Oxygen Saturation - - Inhaled Oxygen Concentration - - Weight 63.5 kg (140 lb) 12/26/2018 9:54 AM EDT Height 149.9 cm (4' 11 ) 12/26/2018 9:54 AM EDT Body Mass Index 28.28 12/26/2018 9:54 AM EDT Plan of Treatment Health Maintenance Due Date Last Done Comments Hepatitis C Screening 1954 COVID-19 Vaccine (#1) 1954 Depression Screening 1966 BMI Counseling 1972 Preventative Health Evaluation 1972 Colon Cancer Screening (Colonoscopy) 1999 Breast Cancer Screening (Mammogram) 2004 Shingrix-Zoster Vaccine (1 o f 2) 2004 Fall Risk Assessment 2019 Osteoporosis Screening (DEXA Scan) 2019 Pneumococcal Vaccine (2 of 2 - PPSV23 or PCV20) 2019 09/03/2016 Influenza Vaccine (#1) 2024 DTap / Tdap / Td (3 - Td or Tdap) 08/01/2028 08/01/2018, 07/23/2016 RSV Adult > 60+ Yrs or (1 - 1-dose 75+ series) 2029 Hepatitis B Vaccines Aged Out No long er eligible based on patient's age to complete this topic RSV Ped < 20 months Aged Out No longe r eligible based on patient's age to complete this topic Care Teams Security Alarm Installer Relationship Specialty Start Date End Date Nasrin Vidal MD [address] [facility] [place] [phone] PCP - General Traveling Clerk 11/14/20
[2025-01-30 09:57] LABS: MANUAL DIFF FLAG NO
[2025-01-30 10:06] LABS: Hematocrit 37.2 % (37.0-47.0); Hemoglobin 11.8 g/dl (12.0-16.0); Imm Gran Abs Auto 0.02 X10*3/uL (0.00-0.03); Imm Gran Pct Auto 0.2 % (0.0-0.4); Lymphocytes Absolute Auto 3.7 X10*3/uL (1.2-4.9); Mean Corpuscular HGB Conc 31.7 g/dl (31.0-35.0); Mean Corpuscular Hemoglobin 27.4 pg (27.0-33.0); Mean Corpuscular Volume 86.5 fL (80.0-98.0); NRBC Abs Auto 0.000 X10*3/uL (0.0-0.012); NRBC Pct Auto 0.0 /100WBC (0.0-0.2); Platelet Count 456 X10*3/uL (160-400); Red Blood Count 4.30 X10*6/uL (4.20-5.50); White Blood Count 8.0 X10*3/uL (4.8-10.8)
[2025-01-30 10:46] LABS: Alanine Aminotransferase 30 U/L (0-31); Albumin Level 4.3 g/dL (3.5-5.0); Alkaline Phosphatase 86 U/L (39-117); Anion Gap 10 (12-20); Aspartate Amino Transferase 31 U/L (5-31); Blood Urea Nitrogen 9 mg/dL (9-16); Calcium 8.9 mg/dL (8.4-10.2); Carbon Dioxide 26 mmol/L (22-29); Chloride 105 mmol/L (96-108); Cholesterol 180 mg/dL (<200); Estimated Glomerular Filt Rate > 60; HDL Cholesterol 55 mg/dL (>40); Potassium 4.0 mmol/L (3.3-5.1); Sodium 137 mmol/L (135-145); Total Protein 7.1 g/dL (6.5-8.0); Triglycerides 73 mg/dL (<150)
== END 2025-01-30 06:17 | disposition home or self-care (01) ==
LOC: HO.HMGCLDS 06:16
PROVIDERS: PCP Internal Medicine; Visit Provider Internal Medicine
DX: Z00.00 Encounter for general adult medical examination without abnormal findings (principal); R73.9 Hyperglycemia, unspecified; E55.9 Vitamin D deficiency, unspecified; E78.5 Hyperlipidemia, unspecified
CPT/HCPCS: 36415; 80053; 80061; 82306; 83036; 84443; 85025

== ENCOUNTER 2025-02-05 07:59 | Outpatient (AMB) | payer MEDICARE, SELFPAY ==
--- OUTSIDE RECORDS SUMMARY | 2025-02-05 08:05 | XMS_ITS | Clinical Summary ---
Author Organization [facility] Address [address] [place] [address] Phone Care Team Providers Care Translational Specialist Name Role Phone Nasrin Vidal MD Primary Care Provider Allergies No known active allergies Medications atorvastatin (LIPITOR) 20 mg tablet Take 1 tablet (20 mg total) by mouth at bedtime. Active magnesium 250 mg tablet Take by mouth 1 (one) time each day. Active meloxicam (MOBIC) 15 mg tablet Take 1 tablet (15 mg total) by mouth if needed for moderate pain. Active Active Problems Problem Noted Date Diagnosed Date Chest pain on breathing 12/14/2024 Assessment & Plan (12/17/2024 10:05 AM EDT): Orders: ECG 12 lead Hyperlipidemia 08/01/2018 Encounters Date Type Department Care Team Description 01/02/2025 7:30 AM EDT Ancillary Procedure [facility] Cardiology [facility] [address] [facility] [place] [address] [place] [id number] BRENNER (dyspnea on exertion) 12/17/2024 9:20 AM EDT Office Visit [facility] [address] [facility] [address] [place] [phone] Ernst Oates MD BRENNER (dyspnea on exertion) (Primary Dx); Chest pain on breathing; Chest pain, unspecified type 11/13/2024 Telephone Gastroenterology - [address] [facility] [address] [place] [phone] Nasrin Escoto MD from Last 3 Months Surgical History Surgery Date Site/Laterality Comments OTHER SURGICAL HISTORY Right PROCEDURE: ARTHROSCOPY SHOULDER SURGI BLADDER SURGERY PROCEDURE: HISTORICAL BLADDER SURGERY; COMMENT: bladder sling SHOULDER SURGERY PROCEDURE:SHOULDER SURGERY BLADDER SUSPENSION PROCEDURE:BLADDER SUSPENSION WRIST SURGERY PROCEDURE:WRIST SURGERY JOINT REPLACEMENT PROCEDURE:JOINT REPLACEMENT Medical History Medical History Date Comments Anemia DX:Anemia Osteoporosis DX:Osteoporosis Vitamin D deficiency Osteopenia Hyperlipidemia Bladder incontinence Arthralgia DJD (degenerative joint disease) Celiac disease Family History Medical History Relation Name Comments Breast cancer Aunt maternal Coronary artery disease Father Diabetes Father Heart disease Father Hypertension Father Breast cancer Mother Diabetes Mother Hypertension Mother Diabetes Sister Relation Name Status Comments Aunt maternal Alive Father Mother Sister Social History Tobacco Use Types Packs/Day Years Used Date Smoking Tobacco: Never Tobacco Cessation:Counseling Given: Not Answered Alcohol Use Standard Drinks/Week Comments No 0 (1 standard drink = 0.6 oz pur e alcohol) Comments No Sex and Gender Information Value Date Recorded Sex Assigned at Female 07/29/2024 12:55 PM EDT Legal Sex Female 9:05 PM EST Gender Identity Female 07/29/2024 12:55 PM EDT Sexual Orientation Straight 07/29/2024 12 :55 PM EDT Obstetrics History Para Term AB IAB SAB Ectopic Multiple Livin g Live Births 3 Last Filed Vital Signs Vital Sign Reading Time Taken Comments Blood Pressure 138/86 01/02/2025 8:00 AM EDT Pulse 75 12/17/2024 9:30 AM EDT Temperature 36.6 C (97.9 F) 07/29/2024 3:24 PM EDT Respiratory Rate 19 07/29/2024 4:30 PM EDT Oxygen Saturation 98% 12/17/2024 9:30 AM EDT Inhaled Oxygen Concentration - - Weight 64 kg (141 lb) 01/02/2025 8:00 AM EDT Height 147.3 cm (4' 10 ) 01/02/2025 8:00 AM EDT Body Mass Index 29.47 01/02/2025 8:00 AM EDT Plan of Treatment Upcoming Encounters Date Type Department Care Team (Late st Contact Info) Description 03/05/2025 8:00 AM EST Consult Gastroenterology - [address] [place] [phone] Irene Taylor, OVIDIO [address] [facility] [address] [place] [address] Health Maintenance Due Date Last Done Comments Colorectal Cancer Screening: Colonoscopy 1955 Pneumococcal Vaccine: 50+ Years (2 of 2 - PCV20 or PCV21) 09/03/2017 09/03/2016 Cholesterol Screening (Lipid Panel) 03/12/2022 Falls Risk Assessment 03/12/2022 Hepatitis C Screening 03/12/2022 Medicare Annual Wellness Visit 03/12/2022 Social Influencers of Health Screening 03/12/2022 Depression Screening 04/04/2024 COVID-19 Vaccine ( season) 2024 02/01/2024, 03/04/2022, 02/22/2021, Additional history exists Influenza Vaccine (#1) 2024 02/01/2024, 2021 Breast Cancer Screening 10/04/2026 10/05/19, 07/20/2023, 07/17/2022, Additional history exists DTaP,Tdap,and Td Vaccines (3 - Td or Tdap) 08/01/2028 08/01/2018, 07/23/2016 RSV Immunization Adult Patients (1 - 1-dose 75+ series) 2029 Osteoporosis Screening (Bone Density Screening) 10/04/2034 10/04/2024, 07/18/2020 Zoster Vaccines Completed 01/30/2022, 11/29/2021 HIB Vaccines Aged Out No longer eligi ble based on patient's age to complete this topic HPV Vaccines Aged Out No longer eligi ble based on patient's age to complete this topic Hepatitis A Vaccines Aged Out No long er eligible based on patient's age to complete this topic Hepatitis B Vaccines Aged Out No long er eligible based on patient's age to complete this topic IPV Vaccines Aged Out No longer eligi ble based on patient's age to complete this topic MMR Vaccines Aged Out No longer eligi ble based on patient's age to complete this topic Meningococcal ACWY Vaccine Aged Out N o longer eligible based on patient's age to complete this topic Meningococcal B Vaccine Aged Out No l onger eligible based on patient's age to complete this topic RSV Immunization Patients Under 20 months Aged Out No longer eligible based on patient's age to complete this topic Varicella Vaccines Aged Out No longer eligible based on patient's age to complete this topic Procedures Procedure Name Priority Date/Time Associated Diagnosis Comments STRESS ECHOCARDIOGRAM EXERCISE WITH CONTRAST Routine 01/02/2025 8:13 AM EDT BRENNER (dyspnea on exertion) ECG 12-LEAD Routine 12/17/2024 9:34 AM EDT Chest pain on breathing BD BONE DENSITY DXA AXIAL SKELETON Routine 10/04/2024 2:43 PM EDT Asymptomatic menopausal state Other specified disorders of bone density and structure, unspecified site MG MAMMO DIGITAL SCREENING W MAN BILAT Routine 10/04/2024 2:10 PM EDT Encounter for screening mammogram for malignant neoplasm of breast from Last 3 Months or Most Recently Relevant to Health Maintenance Results * STRESS ECHOCARDIOGRAM EXERCISE WITH CONTRAST (01/02/2025 8:13 AM EDT) IVSD 0.8 0.6 - 0.9 cm CV PACS STRESS LVIDD 4.8 3.8 - 5.2 cm CV PACS STRESS LVIDS 2.7 2.2 - 3.5 cm CV PACS STRESS LVPWD 0.7 0.6 - 0.9 cm CV PACS STRESS TR Peak Velocity 2.71 m/s CV PACS STRESS TR Peak Gradient 29 mmHg CV PACS STRESS Relative Wall Thickness ratio 0.29 CV PACS STRESS FS 44 % CV PACS STRESS LV Mass 2D 117 g CV PACS STRESS LVIDD Index 3.06 cm/m2 CV PACS STRESS LVIDS Index 1.72 cm/m2 CV PACS STRESS LV Mass Index 2D 74 g/m2 CV PACS STRESS BSA 1.62 m2 CV PACS STRESS Target HR 128 bpm CV PACS STRESS Angina Index 0 CV PACS STRESS Exercise/inject ion duration (min) 4 min CV PACS STRESS Exercise/inject ion duration (sec) 30 sec CV PACS STRESS Baseline HR 68 bpm CV PACS STRESS Peak HR 157 bpm CV PACS STRESS Estimated workload 7.1 METS CV PACS STRESS Percent HR 105 % CV PACS STRESS Samuels Treadmill Score 5 CV PACS STRESS Max HR Percent 104 % CV PA CS STRESS ST Depression (mm) 0 mm CV PACS STRESS Baseline SBP 138 mmHg CV PACS STRESS Baseline DBP 86 mmHg CV PACS STRESS Peak SBP 170 mmHg CV PACS STRESS Peak DBP 80 mmHg CV PACS STRESS Rate Pressure Product 26,690.0 mmHg*bpm CV PACS STRESS Anatomical Region Laterality Modality Ultrasound Narrative 01/03/2025 4:22 PM EDT Post Stress Impression: The study is negative and shows no echocardiographic evidence of ischemia at this adequate level of stress. Stress ECG was normal. Exercise stress test was performed. Exercise capacity was average. Normal blood pressure response. Stress: The test was stopped because the patient experienced shortness of breath. Blood pressure demonstrated a normal response. Heart rate demonstrated a normal response. The patient reported dyspnea during the stress test which resolved quickly in recovery. Left Ventricle Left ventricle cavity size is normal. Wall thickness is normal. Systolic function is normal with an ejection fraction of 55-60%. There are no regional LV wall motion abnormalities. Right Ventricle Systolic function is normal. Study Details Overall the study quality was adequate. Definity contrast was given to enhance imaging. Study was difficult due to: poor endocardial visualization. Stress Findings A Manjinder protocol stress test was performed. Overall, the patient's exercise capacity was average. Total stress time was 4 min and 30 sec. The patient experienced no angina during the test. The test was stopped because the patient experienced shortness of breath. The Samuels Treadmill Score is 5. The patient's hemodynamic response was adequate for diagnosis. Blood pressure demonstrated a normal response. Heart rate demonstrated a normal response. The patient reported dyspnea during the stress test which resolved quickly in recovery. ECG 69 yo female with a history of HLD and former tobacco use referred for CP/BRENNER. The ECG shows normal sinus rhythm. The ECG axis is normal. There were no arrhythmias during stress. There is no ST segment changes during stress. There were no arrhythmias during recovery. The result of the stress ECG was negative for ischemia. Echo Post Stress Left ventricular cavity size decreased from baseline. Left ventricular systolic function improved from baseline. Systolic function is hyperdynamic with an ejection fraction over 70%. Nuclear Measurements The study is negative and shows no echocardiographic evidence of ischemia. us Ernst Oates MD CV ECHO PROCEDURES Final Result * ECG 12 lead (12/17/2024 9:34 AM EDT) Ventricular Rate ECG 75 BPM GEMUSE Atrial Rate 75 BPM GEMUSE P-R Interval 162 ms GEMUSE QRS Duration 76 ms GEMUSE Q-T Interval 368 ms GEMUSE QTc 410 ms GEMUSE P Wave [place] 45 degrees GEMUSE R [place] 35 degrees GEMUSE T [place] 34 degrees GEMUSE ECG Interpretation Normal sinus rhythm Normal ECG When compared with ECG of 29-JUL-2024 12:05, No significant change was found Confirmed by MD Иван, Ernst ([id number]) on 12/17/2024 9:40:09 AM GEMUSE 12/17/2024 9:34 AM EDT 12/17/2024 9:40 AM EDT Ernst Oates MD ECG ORDERABLES Final Res ult GEMUSE * BD Bone Density DXA Axial Skeleton (10/04/2024 2:43 PM EDT) Anatomical Region Laterality Modality Wrist, Hip, L-spine Bone Densito metry 10/08/2024 9:36 AM EDT Impressions 10/08/2024 9:38 AM EDT 1. Osteoporosis. There has been a decrease of 2.1% in bone mineral density in the lumbar spine since the prior examination of 07/18/2020. There has been a decrease of 2.9% in bone mineral density in the right femur and a decrease of 2.2% in bone mineral density in the left femur. 2. FRAX analysis yields a 10-year probability of major osteoporotic fracture of 22.7% and a 10-year probability of hip fracture of 5.8%. Code 08286 -------- FINAL REPORT -------- Dictated By: Timmy Askew Dictated Date: 10/08/2024 09:36 ET Assigned Physician: Timmy Askew Reviewed and Electronically Signed By: Timmy Askew Signed Date: 10/08/2024 09:38 ET Workstation ID: [id number] Transcribed By: Self Edit Transcribed Date: 10/08/2024 09:36 ET Narrative 10/08/2024 9:38 AM EDT HISTORY: The patient is a 69-year-old postmenopausal female with clinical concern for metabolic bone disease. FINDINGS: Dual energy x-ray absorptiometry of the lumbar spine and femurs is performed. The mean bone mineral density at L1-L4 (with the exclusion of L3) is 1.025 gm/cm2 which is 88% of that of young normals and 107% of that of age matched controls. This yields a T-score of -1.2 and a Z-score of 0.6 which is diagnostic of osteopenia. The mean bone mineral density of the femurs bilaterally is 0.828 gm/cm2 which is 82% of that of young normals and 102% of that of age matched controls. This yields a T-score of -1.4 and a Z-score of 0.1 which is diagnostic of osteopenia. However, the T-score of the right femoral neck is -2.5 and that of the left femoral neck is -2.6 which is diagnostic of osteoporosis. Procedure Note Timmy Askew MD - 10/08/2024 HISTORY: The patient is a 69-year-old postmenopausal female with clinicalconcern for metabolic bone disease. FINDINGS: Dual energy x-ray absorptiometry of the lumbar spine and femursis performed. The mean bone mineral density at L1-L4 (with the exclusionof L3) is 1.025 gm/cm2 which is 88% of that of young normals and 107% ofthat of age matched controls. This yields a T-score of -1.2 and a Z-scoreof 0.6 which is diagnostic of osteopenia. The mean bone mineral density of the femurs bilaterally is 0.828 gm/tr8akpqn is 82% of that of young normals and 102% of that of age matchedcontrols. This yields a T-score of -1.4 and a Z-score of 0.1 which isdiagnostic of osteopenia. However, the T-score of the right femoral neckis -2.5 and that of the left femoral neck is - 2.6 which is diagnostic ofosteoporosis. IMPRESSION: 1. Osteoporosis. There has been a decrease of 2.1% in bone mineraldensity in the lumbar spine since the prior examination of 07/18/2020.There has been a decrease of 2.9% in bone mineral density in the rightfemur and a decrease of 2.2% in bone mineral density in the left femur. 2. FRAX analysis yields a 10-year probability of major osteoporoticfracture of 22.7% and a 10-year probability of hip fracture of 5.8%. Code 51256 -------- FINAL REPORT -------- Dictated By: Timmy Askew Dictated Date: 10/08/2024 09:36 ET Assigned Physician: Timmy Askew Reviewed and Electronically Signed By: Timmy Askew Signed Date: 10/08/2024 09:38 ET Workstation ID: [id number] Transcribed By: Self Edit Transcribed Date: 10/08/2024 09:36 ET us Nasrin Vidal MD IMG DXA PROCEDURES Final Resu lt * MG Mammo Digital Screening w Man bilat (10/04/2024 2:10 PM EDT) Anatomical Region Laterality Modality Breast Bilateral Mammography 10/08/2024 7:40 AM EDT Impressions 10/08/2024 7:44 AM EDT No mammographic evidence of malignancy. A negative mammogram in the presence of a clinically suspicious palpable abnormality does not preclude the possibility of malignancy or alter the indications for biopsy. PQRI CPT II 3342F Code 94967, 10526 PQRI 225 CPT II 7025F TISSUE DENSITY: There are scattered areas of fibroglandular density. (BI-RADS category B) IMPRESSION: Benign. BI-RADS CATEGORY: 2 - BENIGN RECOMMENDATION: Screening bilateral mammogram is recommended in 1 year. Mammo Location: [facility], [address] [place] [address] -------- FINAL REPORT -------- Dictated By: Timmy Askew Dictated Date: 10/08/2024 07:40 ET Assigned Physician: Timmy Askew Reviewed and Electronically Signed By: Timmy Askew Signed Date: 10/08/2024 07:44 ET Workstation ID: [id number] Transcribed By: Self Edit Transcribed Date: 10/08/2024 07:40 ET Narrative 10/08/2024 7:44 AM EDT CLINICAL: The patient is a 69 years Female presenting for routine screening mammography. The patient has a family history of breast cancer involving her mother at age 72. COMPARISON: Most recently 07/20/2023 and most remotely 12/28/2016. TECHNIQUE: Full-field digital mammography of the breasts bilaterally consisting of tomosynthesis in MLO and CC projection is performed in the [employer] 2000-D unit. Computer aided detection utilizing the iCAD system was utilized. FINDINGS: The breasts are again seen to be composed of a combination of fatty and fibroglandular elements. Coarse dystrophic calcifications in the upper-outer quadrant of the left breast, associated with a chronic tissue asymmetry, is stable. Bilateral benign punctate and rim calcifications are also again noted. There is no suspicious cluster of microcalcifications, mass, or area of architectural distortion. There is no skin thickening or nipple retraction. Procedure Note Timmy Askew MD - 10/08/2024 CLINICAL: The patient is a 69 years Female presenting for routinescreening mammography. The patient has a family history of breast cancerinvolving her mother at age 72. COMPARISON: Most recently 07/20/2023 and most remotely 12/28/2016. TECHNIQUE: Full-field digital mammography of the breasts bilaterallyconsisting of tomosynthesis in MLO and CC projection is performed in the[employer] 2000-D unit. Computer aided detection utilizing the iCADsystem was utilized. FINDINGS: The breasts are again seen to be composed of a combination offatty and fibroglandular elements. Coarse dystrophic calcifications inthe upper-outer quadrant of the left breast, associated with a chronictissue asymmetry, is stable. Bilateral benign punctate and rimcalcifications are also again noted. There is no suspicious cluster ofmicrocalcifications, mass, or area of architectural distortion. There isno skin thickening or nipple retraction. IMPRESSION: No mammographic evidence of malignancy. A negative mammogram in the presence of a clinically suspicious palpableabnormality does not preclude the possibility of malignancy or alter theindications for biopsy. PQRI CPT II 3342F Code 18312, 63204 PQRI 225 CPT II 7025F TISSUE DENSITY: There are scattered areas of fibroglandular density.(BI-RADS category B) IMPRESSION: Benign. BI-RADS CATEGORY: 2 - BENIGN RECOMMENDATION: Screening bilateral mammogram is recommended in 1 year. Mammo Location: [facility], [address] [place] [address] -------- FINAL REPORT -------- Dictated By: Timmy Askew Dictated Date: 10/08/2024 07:40 ET Assigned Physician: Timmy Askew Reviewed and Electronically Signed By: Timmy Askew Signed Date: 10/08/2024 07:44 ET Workstation ID: [id number] Transcribed By: Self Edit Transcribed Date: 10/08/2024 07:40 ET us Nasrin Vidal MD IMG BI PROCEDURES Final Resul t from Last 3 Months or Most Recently Relevant to Health Maintenance Insurance DR VERONICA [place]IC[place] ADVANTAGE Care Teams Translational Specialist Relationship Specialty Start Date End Date Nasrin Vidal MD 1962 [facility] [place] [id number] PCP - General 11/14/20
--- OUTSIDE RECORDS SUMMARY | 2025-02-05 08:05 | XMS_ITS | Data Portability ---
Author Organization [place] [facility] [place] Address [address] [place] [address] Care Team Providers Care Sap Business Analyst Name Role Phone GASTON ZENG Referring Provider [phone] GASTON ZENG Primary Care Provider [phone] Assessment Encounter Date Assessment Date Assessment LastModified by Organization Details LastModified Time 11/29/2023 11/29/2023 68-year-old fema le with right knee pain. History and exam are suggestive of internal derangement, especially meniscus tear. Recommendations are for MRI of right knee before proceeding with any specific plan of care. Follow-up with me pending results of MRI. This patient was seen and evaluated by Ene Palma MS, PA-C in indirect conjunction with documenting/superv ising provider Geoffrey Montaño MD. He agrees with history, physical examination, tests/diagnostic imaging, and treatment plan. This document was generated using voice recognition software. As a result, there may be unintended spelling, grammatical and/or textual errors. [email or web address] Not available 11/29/2023 09:32:03 12/30/2023 12/30/2023 HPI : Patient is here today with complaints of right knee pain. She started having increased pain in November. She saw Ene Palma. He ordered an MRI of the right knee. MRI demonstrate a nondisplaced tibial tuberosity fracture with surrounding bone marrow edema. She reports significant improvements in her symptoms over the last 1 month. She has been taking meloxicam as needed. She is walking without an assist device. Review of systems is negative for other rapidly progressive neurological disorder, chest pain, shortness of breath, fevers, chills, or any signs of active or persistent local or systemic infection. Physical Exam : Patient is well nourished, well-developed, in no acute distress, with appropriate mood and affect. The patient is oriented to time, place, and person. Examination of the contralateral knee shows normal range of motion, strength, no tenderness, and intact skin. The affected limb is well-perfused, without skin lesions, shows a grossly normal motor and sensory examination. Right knee motion is is not reduced. Range of motion 0 to 135 degrees. Extensor mechanism is intact with able to straight leg raise. 4+ out of 5 quadricep strength. Muscle strength is otherwise normal. Pedal pulses are palpable. Mild tenderness to palpation at the tibial tubercle. Hip examination, including flexion and internal rotation, was negative in that groin pain was not produced. Assessment/Plan : Patient has a healing nondisplaced right tibial tubercle fracture that was only visible in MRI. She has significant symptomatic improvements. She is walking without an assist device. Her extensor mechanism is intact. We can continue conservative management. I am going to refill her meloxicam. She has follow-up with me for her left total knee replacement, in February, I will evaluate both knees then, radiographs of both knees at that time. [email or web address] Not available 12/30/2023 10:47:09 02/03/2024 02/03/2024 HPI : Patient is here for 5-year follow-up from left total knee replacement with outside surgeon. She is also coming in for follow-up for her nondisplaced right tibial tubercle fracture. Regarding the left knee she is doing very well. She really has minimal issues. Just some occasional anterior knee pain. This is mild. She is able to do all her function with her left knee. Overall, patient reports good pain relief in the knee and satisfactory confucianism of function in terms of activities of daily living. Regarding the right knee she has recovered well from her tibial tubercle fracture. She has minimal pain. Just an occasional aching. She is walking well. She is able to do all her activities. Physical Exam : Patient is well nourished, well-developed, in no acute distress, with appropriate mood and affect. The patient is oriented to time, place, and person. Examination of the left knee shows a well-healed skin incision. Range of motion is 0 to 125 degrees. The knee is stable to varus and valgus and AP stress. Good muscle strength of the left knee. The right limb is well-perfused, without skin lesions, shows a grossly normal motor and sensory examination. Right knee motion is is not reduced. Range of motion 0 to 135 degrees. Extensor mechanism is intact with able to straight leg raise. 4+ out of 5 quadricep strength. Muscle strength is otherwise normal. Pedal pulses are palpable. Mild tenderness to palpation at the tibial tubercle. Hip examination, including flexion and internal rotation, was negative in that groin pain was not produced. Assessment/Plan : This patient is functioning well 5 years after left total knee replacement, and has also recovered well regarding her right tibial tubercle fracture. Continue knee conditioning exercises. [id number]-mtz-poguvam medications as needed. Patient was prescribed meloxicam. Discussed the risks of NSAID use with the patient, including but not limited to stomach irritation, gastric ulcers, kidney issues, and bleeding. If considering long-term use, the patient should discuss with their primary care physician. Plan will be for follow-up at another 5 years from surgery for her left knee unless there are issues with either knee before then. Not available 02/03/2024 09:05:32 Plan of Treatment Reminders Order Date Submit Date Provider Last Modified By Organization Details Last Modified Time Details Appointments None recorded. Lab None recorded. Referral None recorded. Procedures None recorded. Surgeries None recorded. Imaging XR, knee, 4 or more view 2023 024 [email or web address] [facility], [address], [place], [address], 4 10:38:36 XR, knee, 4 or more view 2023 024 [email or web address] [facility], [address], [place], [address], 4 10:38:36 XR, knee, 4 or more view 2023 024 [email or web address] [facility], [address], [place], [address], 4 09:29:37 MRI, knee, w/o contrast - MRI: Right knee Diagnosis: Joint pain refractory to conservativ e treatment. Worsening pain and disability. Evaluate for internal derangement , AVN, or occult fracture and characteriz e degree of degenerativ e changes. Please call patient to schedule and hand carry CD 2023 [facility] [address] [place], [address], 16:09:05 Medication Orders meloxicam 15 mg tablet 2023 [id number], [address] [place] [address], [place], [id number], 09:02:14 meloxicam 15 mg tablet 2023 [facility][id number], [address], [place], [id number], 10:48:12 Patient TargetsNo targets recorded. Patient Instructions Encounter Date Encounter Id Patient Instructions Last Modified By Organization Details Last Modified Time 02/03/2024 [id number] AP, lateral, and patellar radiographs of the left knee taken today demonstrate satisfactory position and alignment of components following left total knee replacement. AP, lateral, López, and patellar view radiographs of the right knee taken today demonstrate no signs of fracture, subluxation, dislocation or other acute bony changes. No evidence of the prior tibial tubercle fracture. Not available 02/03/2024 09:06:19 Reason for Referral None Reported. Results Created Date Observation Date Name Description Value Unit Range Abnormal Flag Note LastModifiedBy Organization Detail LastModifiedTime 12/27/1912/20/2023 MRI, knee, w/o contr ast No observ ation record ed. [email or web address] [facility] [address] [place], [address], 12/28/2023 13:46:09 12/30/19 MRI, knee, w/o contr ast No observ ation record ed. [email or web address] Not Available 2023 13:12:24 Result Notes None recorded. Problems Name Problem SNOMED Code Status Onset Date Resolution Date Notes Provider Name and Address Organization Details Recorded Time Arthritis of left knee joint 86492247370 91965 Active 2018 Arthritis of knee, left Not Available [facility] 5 23:48:07 Surgical follow-up 381683681 Active 2018 Postop check Not Available [facility] 5 23:48:07 Pain of left knee joint 13170488562 4107 Active 2022 KARTIK YOUNG PA-C [address], [place], [address] , [place] [facility] 3 12:14:26 Pain of right knee region 90918525472 4105 Active 2023 ENE PALMA PA-C [address], [place], [address] , [place] [facility], [facility] 4 09:30:57 Closed fracture of tibial tuberosit y 314178936 Active 2023 Geoffrey Montaño MD [address], [place], [address] , [place] [facility], [facility] 4 10:47:50 Problem Notes None recorded. Medical Equipment None Reported. Allergies No known drug allergies Medications Name Sig Start Date Stop Date Status Note LastModified by Organization Details LastModified Time celecoxib 200 mg capsule Take 200 mg by mouth daily. 2018 active Not Available Not Available Not Avai lable atorvastati n 20 mg tablet TAKE 1 TABLET BY MOUTH DAILY active Not Available Not Available No t Available azithromyci n 250 mg tablet TAKE 2 TABLETS BY MOUTH FOR 1 DAY THEN TAKE 1 TABLET BY MOUTH DAILY FOR 4 DAYS 11/28 completed Not Available Not Available Not Available benzonatate 200 mg capsule benzonata te 200 mg capsule active Not Available Not Available No t Available sulfamethox azole 400 mg-trimetho prim 80 mg tablet TAKE 1 TABLET BY MOUTH TWICE DAILY FOR 5 DAYS 11/28 completed Not Available Not Available Not Available meloxicam 15 mg tablet Take 1 tablet every day by oral route as needed, for pain. active Not Available Not Available No t Available prednisone 20 mg tablet TAKE 1 TABLET BY MOUTH TWICE DAILY FOR 5 DAYS 11/28 completed Not Available Not Available Not Available sulfamethox azole 800 mg-trimetho prim 160 mg tablet Take 1 tablet (160 mg of trimethop rim total) by mouth 2 (two) times a day. 11/14 completed Not Available Not Available Not Available aspirin 81 mg tablet,robbie yed release Take 81 mg by mouth daily. active Not Available Not Available No t Available acetaminoph en 500 mg tablet TAKE 1 TABLET BY MOUTH EVERY 6 TO 8 HOURS NEEDED FOR PAIN 11/28 completed Not Available Not Available Not Available amoxicillin 500 mg tablet Take 4 tabs 1 hour prior to dental appointme nt 2021 active Not Available Not Available Not Avai lable alprazolam 0.25 mg tablet alprazola m 0.25 mg tablet active Not Available Not Available No t Available methylpredn isolone acetate 40 mg/mL suspension for injection 04/14 completed Not Available Not Available Not Available ranitidine 150 mg tablet ranitidin e 150 mg tablet active Not Available Not Available No t Available gabapentin 300 mg capsule Take 1 capsule (300 mg total) by mouth every night at bedtime. 11/14 completed Not Available Not Available Not Available warfarin 1 mg tablet TAKE 6 TAB EVERY EVENING AT 6PM 11/14 completed Not Available Not Available Not Available ibuprofen 600 mg tablet TAKE 1 TABLET BY MOUTH THREE TIMES DAILY WITH MEALS. MAX 2400 MG DAILY 11/28 completed Not Available Not Available Not Available albuterol sulfate HFA 90 mcg/actuati on aerosol inhaler active Not Available Not Available Not Available fluticasone propionate 50 mcg/actuati on nasal spray,suspe nsion fluticaso ne propionat e 50 mcg/actua tion nasal spray,brayan pension active Not Available Not Available No t Available oxycodone 5 mg tablet TAKE 1 TABLET BY MOUTH EVERY 6 HOURS NEEDED FOR PAIN 11/28 completed Not Available Not Available Not Available lidocaine (PF) 10 mg/mL (1 %) injection solution 08/16 completed Not Available Not Available Not Available cholecalcif cathy (vitamin D3) 50 mcg (2,000 unit) tablet Take 2,000 Units by mouth. 2019 active Not Available Not Available Not Avai lable hyaluronate sodium, cross-linke d 30 mg/3 mL intra-artic ular syringe 08/16 completed Not Available Not Available Not Available Vitals Date Recorded Body height Body mass index (BMI) Body weight Provider Name and Address Organization Details Last Updated DateTime 11/29/2023 149.86 cm 28.3 kg/m2 48885[address] [facility] 11/29/2023 09:22:44 Date Recorded Body height Body mass index (BMI) Body weight Provider Name and Address Organization Details Last Updated DateTime 02/03/2024 149.86 cm 28.3 kg/m2 52593.93 g Lorna Stewartbandar [facility], [facility] 02/03/2024 08:47:10 Social History Question Answer Notes LastModified by [employer] Details LastModified Time Tobacco Smoking Status Former Smoker Opal Diamond null, [place] - [facility] 11/29/2023 09:23:16 When Did You Quit Smoking? 16+yearssinc elastcigaret te [email or web address] Information not available 11/29/2023 How Much Tobacco Do You Smoke? 0.5 PPD [email or web address] Information not available 11/29/2023 How Many Years Have You Smoked Tobacco? 10 [email or web address] Information not available 11/29/2023 Sex: Unknown Functional Status Question Answer Note LastModified by [employer] Details LastModified Time Do you use any illicit or recreational drugs? No [email or web address] Information not available 11/29/2023 Do you or have you ever used any other forms of tobacco or nicotine? No [email or web address] Information not available 11/29/2023 What is your level of alcohol consumption? None [email or web address] Information not available 11/29/2023 Mental Status None recorded. Family History Relationship Description Onset Age of this Age Resolved Age Notes LastModified by Organization Details LastModified Time Sister Arthritis [email or web address] Not avail able 11/29/2023 09:23:50 Sister Diabetes mellitus [email or web address] Not available 11/03 09:24:07 Mother Arthritis [email or web address] Not avail able 11/29/2023 09:23:50 Mother Diabetes mellitus [email or web address] Not available 11/03 09:24:07 Mother Hypertensive disorder [email or web address] Not available 11/03 09:24:40 Father Heart disease [email or web address] Not available 11/03 09:24:21 Father Hypertensive disorder [email or web address] Not available 11/03 09:24:40 Medical History Condition Response Anemia Y Osteoporosis Y Gynecological HistoryNo gynecological history recorded. Obstetrics History GPAL:G 0 P 0 0 0 0 Past Encounters Encounter ID Performer Location Encounter Start Date Encounter Closed Date Diagnosis/Indication Diagnosis SNOMED-CT Code Diagnosis ICD10 Code Diagnosis IMO Codes Diagnosis Note [id number] ENE PALMA PA-C [place] [address] [address] 11/29/2023 08:50:43 11/29/2023 09:29:37 Pain of right knee region 6611719603 06778 M25.561 58163624 Pain of ri ght knee joint 8698747894 87277 M25.561 [id number] MD HUY Daniels [place] [address] [address] 12/30/2023 10:12:10 12/30/2023 10:49:59 Closed fracture of tibial tuberosity 313070456 S82.154D [id number] MD HUY Daniels [address] [address] 02/03/2024 08:34:18 02/03/2024 09:01:41 History of operative procedure on knee 736048023 Z96.652 38494248 Pain of ri ght knee region 5708927285 81381 M25.561 [id number] Closed fra cture of tibial tuberosity 194480477 S82.154D [id number] Health Concerns Section Related Observation LastModified by Organization Detai ls LastModified Time None Recorded Concern Status LastModified by Organization Details LastModified Time None Recorded Advance Directives Directive None Recorded Payers Insurance Date Sequence Insurance Name Policy Number Policy Cantrell Covered Member ID Cantrell Member ID Guarantor Name 02/03/2024 1 [facility] (MEDICARE REPLACEMENT/A DVANTAGE - PPO) [id number] Ronda Hendricks [id number] Ronda Hendricks Notes Date Note Type Note Provider Name and Address Organization Details Recorded Time 11/29/2023 text/html 68-year-old female presents with chief complaint of right knee pain. She reports that approximately 2 weeks ago she rolled over in bed and had sudden sharp and severe pain at the anterior aspect of the right knee. This woke her from sleep. Ever since then she has had persistence of right knee pain especially with certain motions of the joint including twisting. Without being asked, she offers me the description of mechanical locking of the joint. She states that will get painfully stuck in 1 position and then suddenly free up and have full motion. She verbalizes her personal concerns about something torn. She denies a history of any prior surgery fracture or dislocation but does describe a progressive ache at the right knee joint leading up to this most recent experience. She does not report any swelling or feelings of gross instability. ENE PALMA PA-C [address], [place], [address], [place] [facility] 11/29/2023 09:32:25 OBGyn Episode No OBEpisode recorded.
--- OUTSIDE RECORDS SUMMARY | 2025-02-05 08:05 | XMS_ITS | Clinical Summary ---
Author Organization [facility] Address [address] [place] [address] Care Team Providers Care Pleater Hand Name Role Phone Nasrin Vidal MD Primary Care Provider [phone] Allergies Active Allergy Reactions Criticality Noted Date [...] age to complete this topic Care Teams Pleater Hand Relationship Specialty Start Date End Date Nasrin Vidal MD [address] [facility] [place] [phone] PCP - General Warper Tender 11/14/20
--- NOTE | 2025-02-05 08:07 | A.OFFPC_ITS ---
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 Allergies wheat Allergy (Mild, Verified 02/05/25 08:09) Ciliac disease pravastatin Adverse Reaction (Verified 02/05/25 08:09) headaches Medication List - Last Reconciled 02/05/25 by Nasrin Vidal MD atorvastatin 20 mg PO DAILY magnesium 250 mg PO DAILY meloxicam 15 mg PO DAILY scopolamine base 1 patch transdermal Q3D PRN Tobacco use date assessed: 02/05/25 Fall risk assessment: 1 Fall in past year Last assessed Fall Risk: 02/05/25 Dental Screening Dental Screen Date: 02/05/25 Did you have a dental visit in the last 12 months?: Yes Did you have a dental problem in the last 6 months where you did not have access to dental care?: No Was dental information given to patient?: Patient has dentist HPI PE HPI Details Pt presents for PE. Patient reports sensation shortness or breath once or twice a week starting in the morning. Patient denies chest pain or palpitations associated with the sensation. She is very physically active, walking 4 times a week for 4 miles and biking twice a week for up to 12 miles. Patient denies any exercise-induced symptoms of chest pain shortness or breath or palpitations. Patient had negative echo stress test in December at [facility]. Patient denies cough pleurisy PND orthopnea but reports chronic insomnia for many years, waking up multiple times during the night and feeling tired in the morning. Patient denies anxiety or depression. [facility] Medical History (Updated 02/05/25 @ 08:42 by Nasrin Vidal MD) Hyperglycemia BRENNER (dyspnea on exertion) Annual physical exam Bladder incontinence Hyperlipidemia Arthralgia Postmenopausal Osteopenia Vitamin D deficiency Degenerative joint disease (DJD) of lumbar spine Normal Pap smear Mammogram normal Normal colonoscopy Adult celiac disease Surgical History History of bladder suspension procedure Knee joint replacement status History of carpal tunnel surgery H/O rotator cuff surgery History of left knee replacement Family History Mother Diabetes Breast cancer Father Heart problem Social History Household Members Other:: , 3 daughters, 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 [place] Housing: House Patient Tobacco Use Status: Former Tobacco user e-Cigarette/Vaping Use: Never Used service: No Current occupational status: retired Cognitive needs: No Hearing needs: No Vision needs: Yes Questionnaire PHQ-9 Over the last 2 weeks, how often have you been bothered by any of the following problems? 1. Little interest or pleasure in doing things: not at all 2. Feeling down, depressed, or hopeless: not at all 3. Trouble falling or staying asleep, or sleeping too much: not at all 4. Feeling tired or having little energy: not at all 5. Poor appetite or overeating: not at all 6. Feeling bad about yourself - or that you are a failure or have let yourself or your family down: not at all 7. Trouble concentrating on things, such as reading the newspaper or watching television: not at all 8. Moving or speaking so slowly that other people could have noticed. Or the opposite - being so fidgety or restless that you have been moving around a lot more than usual: not at all 9. Thoughts that you would be better off or of hurting yourself in some way: not at all Total score: 0 Depression Screening Interpretation: Negative Depression Screening Done: Yes 70498 - PHQ-9 Billing: Yes Source: Developed by Drs. Rey Curtis, Joanie Caraballo, Malick Millan and colleagues, with an educational celia from [employer]. Thrive Questionnaire Date Thrive assessed: 02/05/25 I am a: Patient What is your living situation today?: I have a steady place to live Within the past 12 months, did the food you bought not last and you didn't have the money to get more?: Never true Within the past 12 months, did you worry whether your food would run out before you got money to buy more?: Never true Do you have trouble paying for medicines?: No Do you have trouble getting transportation to medical appointments?: No Do you have trouble paying your heating and electricity bill?: No Do you have trouble taking care of your child, family member or friend?: No Do you have trouble with day-to-day activities such as bathing, preparing meals, shopping, managing finances, etc.?: No Are you currently unemployed and looking for a job?: No Are you interested in more education?: No Please select the resources that you would like help with: None Currently or been in a relationship where the following occur: No concerns reported THRIVE Score: 0 AUDIT C Alcohol Use Questionnaire (AUDIT-C) 1. How often do you have a drink containing alcohol?: Never 2. How many drinks containing alcohol do you have on a typical day when you are drinking?: 1 or 2 3. How often do you have six or more drinks on one occasion?: Never Total Score: 0 Score Reviewed/Action Taken: Yes CHRISTOPH-7 AMB Questionnaire CHRISTOPH-7 Date CHRISTOPH - 7 assessed: 02/05/25 Feeling nervous, anxious, or on edge: 0 = Not at all Not being able to stop or control worryin = Not at all Worrying too much about different things: 0 = Not at all Trouble relaxin = Not at all Being so restless that it is hard to sit still: 0 = Not at all Becoming easily annoyed or irritable: 0 = Not at all Feeling afraid as if something awful might happen: 0 = Not at all Total CHRISTOPH-7 score (0-4 normal; 5-9 mild; 10-14 moderate; 15-21 severe): 0 Source: Developed by Drs. Rey Curtis, Joanie Caraballo, Malick Millan and colleagues, with an educational celia from [employer]. CHRISTOPH-7 Assessment Billing CHRISTOPH-7 Assessment Tool: CHRISTOPH-7 Assessment 11237 Review of Systems Const All systems reviewed & are unremarkable except as noted in HPI and below Eyes Reports no additional complaints ENT Reports no additional complaints Card Reports no additional complaints Resp Reports no additional complaints GI Reports no additional complaints Reports no additional complaints Physical exam (Primary Care) Vital Signs: Last Vital Signs Pulse 69 02/05/25 08:09 Resp 16 02/05/25 08:09 BP 132/70 02/05/25 08:09 Pulse Ox 99 02/05/25 08:09 Oxygen Delivery Method Room Air 02/05/25 08:09 BMI result Body Mass Index 29.5 Tobacco/Smoking Status: Tobacco use Status Tobacco use date assessed 02/05/25 02/05/25 08:13 Patient Tobacco Use Status Former Tobacco user 02/05/25 08:09 e-Cigarette/Vaping Use Never Used 02/05/25 08:09 PHQ-9: PHQ-9 Score PHQ-9: Total score 0 02/05/25 08:13 Depression Screening Interpretation: Negative Thrive Assessment: Date of Thrive Assessment Date Thrive assessed 02/05/25 02/05/25 08:13 Currently or been in a relationship where the following occur: No concerns reported Const General: no acute distress HENMT Head: Yes normal to inspection Ears: TM's normal bilaterally Face and sinus: Yes normal facial exam Mouth: Normal oral and palatal mucosa present Throat: Yes posterior oropharynx normal Eyes General: appearance normal, both eyes and all related structures Neck Neck: Yes no lymphadenopathy and Yes supple Resp Effort & Inspection: normal respiratory effort Auscultation: clear to auscultation bilaterally Cardio Rhythm: regular rhythm Heart sounds: S1 normal heart sound present and S2 normal heart sound present GI Inspection: Yes normal to inspection Palpation (GI): Soft to palpation Percussion: Yes normal to percussion Auscultation: normal bowel sounds Coding Level of Care Code Est Pt Prev Care >65y(25152) Diagnoses Hyperlipidemia E78.5 BRENNER (dyspnea on exertion) R06.09 Annual physical exam Z00.00 Additional Codes CHRISTOPH-7 Assessment Billing - CHRISTOPH-7 Assessment Tool: CHRISTOPH-7 Assessment 55566 ([id number]) PHQ-9 - 42635 - PHQ-9 Billing: Yes ([id number]) Assessment & Plan Assessment & Plan (1) Hyperlipidemia: Comment: Patient cannot tolerate multiple statins. She can tolerate atorvastatin QOD Code(s): E78.5 - Hyperlipidemia, unspecified Category: Medical Plan: Continue statin (2) BRENNER (dyspnea on exertion): Comment: Normal echo stress test at [facility] 12/2024 Code(s): R06.09 - Other forms of dyspnea Category: Medical Plan: Obtain pulmonary function test (3) Annual physical exam: Code(s): Z00.00 - Encounter for general adult medical examination without abnormal findings Category: Medical Plan: Well-balanced diet regular physical activity discussed with the patient. She is up-to-date with the mammogram at [facility], colonoscopy. Patient had DEXA at [facility] this year and results will be obtained. Orders: Orders PFT pulmonary function test Today R06.09 - Other forms of dyspnea Comprehensive [place]. Panel Fast 1 Year E55.9 - Vitamin D deficiency, unspecified, E78.5 - Hyperlipidemia, unspecified, R73.9 - Hyperglycemia, unspecified, Z00.00 - Encounter for general adult medical examination without abnormal findings Lipid Panel 1 Year E55.9 - Vitamin D deficiency, unspecified, E78.5 - Hyperlipidemia, unspecified, R73.9 - Hyperglycemia, unspecified, Z00.00 - Encounter for general adult medical examination without abnormal findings Complete Blood Count Auto Diff 1 Year E55.9 - Vitamin D deficiency, unspecified, E78.5 - Hyperlipidemia, unspecified, R73.9 - Hyperglycemia, unspecified, Z00.00 - Encounter for general adult medical examination without abnormal findings Hemoglobin A1c 1 Year E55.9 - Vitamin D deficiency, unspecified, E78.5 - Hyperlipidemia, unspecified, R73.9 - Hyperglycemia, unspecified, Z00.00 - Encounter for general adult medical examination without abnormal findings TSH reflex Free T4 1 Year E55.9 - Vitamin D deficiency, unspecified, E78.5 - Hyperlipidemia, unspecified, R73.9 - Hyperglycemia, unspecified, Z00.00 - Encounter for general adult medical examination without abnormal findings UA w Microscopic 1 Year E55.9 - Vitamin D deficiency, unspecified, E78.5 - Hyperlipidemia, unspecified, R73.9 - Hyperglycemia, unspecified, Z00.00 - Encounter for general adult medical examination without abnormal findings Vitamin D 25-OH Total 1 Year E55.9 - Vitamin D deficiency, unspecified, E78.5 - Hyperlipidemia, unspecified, R73.9 - Hyperglycemia, unspecified, Z00.00 - Encounter for general adult medical examination without abnormal findings
[2025-02-05 08:09] VITALS: BP 132/70; PULSE 69; RESP 16; O2SAT 99; BMI 29.5
== END 2025-02-05 08:45 | disposition home or self-care (01) ==
LOC: HO.HMCC 07:59
PROVIDERS: PCP Internal Medicine; Visit Provider Internal Medicine
DX: Z00.00 Encounter for general adult medical examination without abnormal findings (principal); E78.5 Hyperlipidemia, unspecified; R06.09 Other forms of dyspnea

== ENCOUNTER → 2025-02-05 07:59 | Outpatient (BNVA) | payer MEDICARE, SELFPAY | PROVIDERS: PCP Internal Medicine; Visit Provider Internal Medicine | DX: Z00.00 Encounter for general adult medical examination without abnormal findings (principal); E78.5 Hyperlipidemia, unspecified; R06.09 Other forms of dyspnea; E55.9 Vitamin D deficiency, unspecified; R73.9 Hyperglycemia, unspecified | CPT/HCPCS: 96127; 99397 ==

== ENCOUNTER 2025-02-14 14:57 | Outpatient (AMB) | payer MEDICARE, SELFPAY ==
[2025-02-14 16:12] VITALS: BP 118/60; PULSE 77; TEMP 36.8; O2SAT 98; BMI 28.8
--- NOTE | 2025-02-14 16:12 | AM.OFFWIN_ITS ---
Intake Vital Signs 02/14/25 16:12 Height 4 ft 10 in Weight 138 lb BMI 28.8 BP 118/60 Blood Pressure Location Lt brachial Position Sitting Pulse 77 Pulse Source Pulse Oximeter Temp 98.3 F Temp Source Oral Pulse Oximetry (%) 98 Oxygen Delivery Method Room Air Intake Visit Reasons: EP Chills, vomitting, headache, soreness Intake Note: pt presents with body aches, boy chills, headaches, decreased appetite x2 days reports vomiting this morning after breakfast Patient Tobacco Use Status: Former Tobacco user Allergies wheat Allergy (Mild, Verified 02/14/25 16:15) Ciliac disease pravastatin Adverse Reaction (Verified 02/14/25 16:15) headaches Medication List - Last Reconciled 02/14/25 by Nicki Negron NP atorvastatin 20 mg PO DAILY magnesium 250 mg PO DAILY meloxicam 15 mg PO DAILY ondansetron 8 mg PO Q8H scopolamine base 1 patch transdermal Q3D PRN Do you need a note to return to daycare/school/sports/work: No HPI HPI Comments History of Present Illness Details 69 y/o female [facility] with 2 days of body aches, body chills, generalized weakness, headaches, and decreased appetite. She reports vomiting once this morning after breakfast and continues to have poor appetite. States she has been taking acetaminophen with only minimal relief. Denies recent sick contacts. Denies cough, sore throat, chest pain, shortness of breath, abdominal pain, diarrhea, urinary symptoms, or rash. [facility] Medical History (Updated 02/14/25 @ 16:50 by Nicki Negron NP) Acute respiratory disease Essential hypertension Hyperglycemia BRENNER (dyspnea on exertion) Annual physical exam Bladder incontinence Hyperlipidemia Arthralgia Postmenopausal Osteopenia Vitamin D deficiency Degenerative joint disease (DJD) of lumbar spine Normal Pap smear Mammogram normal Normal colonoscopy Adult celiac disease Surgical History History of bladder suspension procedure Knee joint replacement status History of carpal tunnel surgery H/O rotator cuff surgery History of left knee replacement Family History Mother Diabetes Breast cancer Father Heart problem Social History Household Members Other:: , 3 daughters, works as a corporate secretary in [employer] Housing: House Patient Tobacco Use Status: Former Tobacco user e-Cigarette/Vaping Use: Never Used service: No Current occupational status: retired Cognitive needs: No Hearing needs: No Vision needs: Yes Review of Systems Const All systems reviewed & are unremarkable except as noted in HPI and below Physical Exam Vital Signs: Last Vital Signs Temp 98.3 F 02/14/25 16:12 Pulse 77 02/14/25 16:12 BP 118/60 02/14/25 16:12 Pulse Ox 98 02/14/25 16:12 Oxygen Delivery Method Room Air 02/14/25 16:12 BMI result Body Mass Index 28.8 Const General: no acute distress Nutritional Appearance: well nourished Orientation/consciousness: patient oriented x3 HEENT Head: Yes normocephalic Ears: external ears normal and TM's normal bilaterally General nose exam: Normal external nose present Face and sinus: Yes normal facial exam Mouth: moist mucous membranes Throat: Yes uvula midline Resp Effort & Inspection: normal respiratory effort and able to speak in complete sentences Auscultation: clear to auscultation bilaterally, no crackles, no rales, no rhonchi and no wheezes Cardio Heart sounds: S1 normal heart sound present and S2 normal heart sound present GI Inspection: Yes obesity Palpation (GI): Soft to palpation, not firm, Tenderness to palpation present (GI), no guarding, not rigid and No hepatosplenomegaly present Auscultation: normal bowel sounds Neuro General: patient oriented x3, gait normal and moves all extremities Psych Speech and movement: Normal speech and movement present Assessment & Plan Assessment & Plan (1) Acute respiratory disease: Code(s): J06.9 - Acute upper respiratory infection, unspecified Plan: Flu-like illness / Viral syndrome ? Most consistent with viral etiology given Myalgias, chills, headache, weakness, decreased appetite, and isolated vomiting. Dehydration, mild ? Possible given poor PO intake and vomiting. Differential: Early influenza vs COVID-19 vs Viral gastroenteritis. Ordered SARs today. Less likely: UTI, pneumonia, meningitis (no focal symptoms). Continue acetaminophen PRN for fever/body aches. May add ibuprofen if no contraindications. Ondansetron PRN for nausea/vomiting. Encouraged oral hydration (water, electrolyte solutions). Go to ED for : Worsening weakness, inability to keep fluids down, persistent vomiting, chest pain, shortness of breath, high fever, confusion. Orders: Orders SARS-CoV2/FLU/RSV Today J06.9 - Acute upper respiratory infection, unspecified Medications: New ondansetron 8 mg PO Q8H 20 tabs 0RF J06.9 - Acute upper respiratory infection, unspecified Discontinued meloxicam take with food Discontinued Reason: Patient Completed Course 15 mg PO DAILY 30 tabs 0RF scopolamine base Discontinued Reason: Patient Completed Course 1 patch transdermal Q3D PRN 4 ea 0RF nausea and vomiting Coding Level of Care Code Est Pt Level 4 (43230) Diagnoses Acute respiratory disease J06.9 Time Spent (min) 20
--- OUTSIDE RECORDS SUMMARY | 2025-02-14 18:13 | XMS_ITS | Clinical Summary ---
Author Organization [facility] [address] [place] [address] Phone Care Team Providers Care Razor Grinder Name Role Phone Nasrin Vidal MD Primary Care Provider [phone] Allergies No known active allergies Medications atorvastatin [...] Encounters Date Type Department Care Team Description 02/11/2025 Results Follow-Up [facility] [facility] [address] [place] [address] Kacie Longoria NP 01/02/2025 7:30 AM EDT Ancillary Procedure [facility] [address] [place] [address] BRENNER (dyspnea on exertion) 12/17/2024 9:20 AM EDT Office Visit [facility] [address] [place] [id number] Ernst Oates MD BRENNER (dyspnea on exertion) (Primary Dx); Chest pain on breathing; Chest pain, unspecified type from Last 3 Months Surgical History Surgery [...] [address] [place] [id number] Irene Taylor, OVIDIO [address] [facility] [address] [place] [address] Health Maintenance Due Date Last Done Comments [...] 2024 02/01/2024, 2021 Breast Cancer Screening 10/04/2026 10/05/19 25, 07/20/2023, 07/17/2022, Additional history exists DTaP,Tdap,and Td [...] and shows no echocardiographic evidence of ischemia. Ernst Oates MD CV ECHO PROCEDURES Final Result * ECG 12 lead (12/17/2024 9:34 AM EDT) Ventricular Rate ECG 75 BPM GEMUSE Atrial Rate 75 BPM GEMUSE P-R Interval 162 ms GEMUSE QRS Duration 76 ms GEMUSE Q-T Interval 368 ms GEMUSE QTc 410 ms GEMUSE P Wave [place] 45 degrees GEMUSE R [place] 35 degrees GEMUSE T [place] 34 degrees GEMUSE ECG Interpretation Normal sinus rhythm Normal ECG When compared with ECG of 29-JUL-2024 12:05, No significant change was found Confirmed by MD Oates Christopher ([id number]) on 12/17/2024 9:40:09 AM GEMUSE 12/17/2024 [...] probability of hip fracture of 5.8%. Code 52853 -------- FINAL REPORT -------- Dictated By: Timmy Askew Dictated Date: 10/08/2024 09:36 ET Assigned Physician: Timmy Askew Reviewed and Electronically Signed By: Timmy Askew Signed Date: 10/08/2024 09:38 ET Workstation ID: [id number] Transcribed By: Self Edit Transcribed Date: 10/08/2024 [...] density of the femurs bilaterally is 0.828 [id number] is 82% of that of young normals [...] probability of hip fracture of 5.8%. Code 47101 -------- FINAL REPORT -------- Dictated By: Timmy Askew Dictated Date: 10/08/2024 09:36 ET Assigned Physician: Timmy Askew Reviewed and Electronically Signed By: Timmy Askew Signed Date: 10/08/2024 09:38 ET Workstation ID: [id number] Transcribed By: Self Edit Transcribed Date: 10/08/2024 [...] for biopsy. PQRI CPT II 3342F Code 48829, 66183 PQRI 225 CPT II 7025F TISSUE DENSITY: There are scattered areas of fibroglandular density. (BI-RADS category B) IMPRESSION: Benign. BI-RADS CATEGORY: 2 - BENIGN RECOMMENDATION: Screening bilateral mammogram is recommended in 1 year. Mammo Location: [facility], [address] [place] [address] -------- FINAL REPORT -------- Dictated By: Timmy Askew Dictated Date: 10/08/2024 07:40 ET Assigned Physician: Timmy Askew Reviewed and Electronically Signed By: Timmy Askew Signed Date: 10/08/2024 07:44 ET Workstation ID: [id number] Transcribed By: Self Edit Transcribed Date: 10/08/2024 [...] and CC projection is performed in the [employer] 2000-D unit. Computer aided detection utilizing the [...] MLO and CC projection is performed in the[employer] 2000-D unit. Computer aided detection utilizing the [employer] was utilized. FINDINGS: The breasts are again [...] for biopsy. PQRI CPT II 3342F Code 99489, 81608 PQRI 225 CPT II 7025F TISSUE DENSITY: There are scattered areas of fibroglandular density.(BI-RADS category B) IMPRESSION: Benign. BI-RADS CATEGORY: 2 - BENIGN RECOMMENDATION: Screening bilateral mammogram is recommended in 1 year. Mammo Location: [facility], [address] [place] [id number] -------- FINAL REPORT -------- Dictated By: Timmy Askew Dictated Date: 10/08/2024 07:40 ET Assigned Physician: Timmy Askew Reviewed and Electronically Signed By: Timmy Askew Signed Date: 10/08/2024 07:44 ET Workstation ID: [id number] Transcribed By: Self Edit Transcribed Date: 10/08/2024 07:40 ET us Nasrin Vidal MD IMG BI PROCEDURES Final Resul t from Last 3 Months or Most Recently Relevant to Health Maintenance Insurance Care Teams Razor Grinder Relationship Specialty Start Date End Date Nasrin Vidal MD 1962 [facility]IN PCP - General 11/14/20
--- OUTSIDE RECORDS SUMMARY | 2025-02-14 18:13 | XMS_ITS | Data Portability ---
Author Organization [place] [facility] Tiwari AONE Loiza Address [address] [place] [address] Care Team Providers Care Machine Maintenance Name Role Phone GASTON ZENG Referring Provider GASTON ZENG Primary Care Provider Assessment Encounter Date Assessment Date Assessment LastModified [...] pain relief in the knee and satisfactory buddhist of function in terms of activities of [...] tibial tubercle fracture. Continue knee conditioning exercises. Bdnj-vmh-qssizmm medications as needed. Patient was prescribed meloxicam. [...] more view 2023 024 [email or web address] [facility], [address], [place], [address], 4 10:38:36 XR, knee, 4 or more view 2023 024 [email or web address] [facility], [address], [place], [address], 4 10:38:36 XR, knee, 4 or more view 2023 024 [email or web address] [facility], [address], [place], [address], 4 09:29:37 MRI, knee, w/o contrast - MRI: Right knee Diagnosis: Joint pain refractory to conservativ e treatment. Worsening pain and disability. Evaluate for internal derangement , AVN, or occult fracture and characteriz e degree of degenerativ e changes. Please call patient to schedule and hand carry CD 2023 [facility] [address] [place], [address], 16:09:05 Medication Orders meloxicam 15 mg tablet 2023 [id number], [address], [place], [id number], 09:02:14 meloxicam 15 mg tablet 2023 [id number], [address], [place], [id number], 10:48:12 Patient TargetsNo targets recorded. Patient Instructions Encounter Date Encounter Id Patient Instructions Last Modified By Organization Details Last Modified Time 02/03/2024 [id number] AP, lateral, and patellar radiographs of the [...] ation record ed. [email or web address] [facility] [address] [place], [address], 12/28/2023 13:46:09 12/30/19 MRI, knee, w/o contr ast No observ ation record ed. [email or web address] Not Available 2023 13:12:24 Result Notes None recorded. Problems Name Problem SNOMED Code Status Onset Date Resolution Date Notes Provider Name and Address Organization Details Recorded Time Arthritis of left knee joint 07118934238 98873 Active 2018 Arthritis of knee, left Not Available [facility] 5 23:48:07 Surgical follow-up 312543358 Active 2018 Postop check Not Available [facility] 5 23:48:07 Pain of left knee joint 95443617283 4107 Active 2022 KARTIK YOUNG PA-C [address], [place], [address] , [place] [facility] 3 12:14:26 Pain of right knee region 35148409757 4105 Active 2023 ENE PALMA PA-C [address], [place], [address] , [place] [facility], [facility] 4 09:30:57 Closed fracture of tibial tuberosit y 765228564 Active 2023 Geoffrey Montaño MD [address], [place], [address] , [place] [facility] 4 10:47:50 Problem Notes None recorded. [...] Updated DateTime 11/29/2023 149.86 cm 28.3 kg/m2 59463.93 g Opalarlette Pedroersen [facility] 11/29/2023 09:22:44 Date Recorded Body height Body mass index (BMI) Body weight Provider Name and Address Organization Details Last Updated DateTime 02/03/2024 149.86 cm 28.3 kg/m2 80550.93 g Lorna Stewartbandar [facility], P 02/03/2024 08:47:10 Social History Question Answer Notes LastModified by [employer] Details LastModified Time Tobacco Smoking Status Former Smoker Opal Diamond null, [place] [facility] 11/29/2023 09:23:16 When Did You Quit Smoking? 16+yearssinc elastcigaret te [email or web address] Information not available 11/29/2023 How Much Tobacco Do You Smoke? 0.5 PPD [email or web address] Information not available 11/29/2023 How Many Years Have You Smoked Tobacco? 10 [email or web address] Information not available 11/29/2023 Sex: Unknown Functional Status Question Answer Note LastModified by [employer] Details LastModified Time Do you use any illicit or recreational drugs? No [email or web address] Information not available 11/29/2023 Do you or have you ever used any other forms of tobacco or nicotine? No [email or web address] Information not available 11/29/2023 What is your level of alcohol consumption? None [email or web address] Information not available 11/29/2023 Mental Status None recorded. Family History Relationship Description Onset Age of this Age Resolved Age Notes LastModified by Organization Details LastModified Time Sister Arthritis [email or web address] Not avail able 11/29/2023 09:23:50 Sister Diabetes mellitus [email or web address] Not available 11/03 09:24:07 Mother Arthritis [email or web address] Not avail able 11/29/2023 09:23:50 Mother Diabetes mellitus [email or web address] Not available 11/03 09:24:07 Mother Hypertensive disorder [email or web address] Not available 11/03 09:24:40 Father Heart disease [email or web address] Not available 11/03 09:24:21 Father Hypertensive disorder [email or web address] Not available 11/03 09:24:40 Medical History Condition Response Anemia Y Osteoporosis Y Gynecological HistoryNo gynecological history recorded. Obstetrics History GPAL:G 0 P 0 0 0 0 Past Encounters Encounter ID Performer Location Encounter Start Date Encounter Closed Date Diagnosis/Indication Diagnosis SNOMED-CT Code Diagnosis ICD10 Code Diagnosis IMO Codes Diagnosis Note [id number] ENE PALMA PA-C [place] [address] [address] 11/29/2023 08:50:43 11/29/2023 09:29:37 Pain of right knee region 1284225573 44287 M25.561 15780909 Pain of ri ght knee joint 8634482459 88126 M25.561 [id number] MD HUY Daniels [place] [address] [address] 12/30/2023 10:12:10 12/30/2023 10:49:59 Closed fracture of tibial tuberosity 251264781 S82.154D [id number] MD HUY Daniels [address] [address] 02/03/2024 08:34:18 02/03/2024 09:01:41 History of operative procedure on knee 442846467 Z96.652 22501621 Pain of ri ght knee region 6881206795 53894 M25.561 18322045 Closed fra cture of tibial tuberosity 463728749 S82.154D 131872437 Health Concerns Section Related Observation LastModified by Organization Detai ls LastModified Time None Recorded Concern Status LastModified by Organization Details LastModified Time None Recorded Advance Directives Directive None Recorded Payers Insurance Date Sequence Insurance Name Policy Number Policy Cantrell Covered Member ID Cantrell Member ID Guarantor Name 02/03/2024 1 [facility] (MEDICARE REPLACEMENT/A DVANTAGE - PPO) [id number] Ronda Hendricks [id number] Ronda Hendricks Notes Date Note Type Note [...] ENE PALMA PA-C [address], [place], [address], [place] [facility] 11/29/2023 09:32:25 OBGyn Episode No OBEpisode recorded.
--- OUTSIDE RECORDS SUMMARY | 2025-02-14 18:13 | XMS_ITS | Encounter Summary ---
Author Organization [facility] Address [address] [place] [address] Care Team Providers Care Cafeteria Director Name Role Phone Nasrin Vidal MD Primary Care Provider [phone] Encounter Details Date Type Department Care Team (Late st Contact Info) Description 02/11/2025 Results Follow-Up [facility] - [facility] [address] [facility] [address] [place] [phone] Kacie Longoria, OVIDIO [address] [place] [address] [place] [phone] Social History Tobacco Use Types Packs/Day Years Used Date Smoking Tobacco: Never Alcohol Use Standard Drinks/Week Comments No 0 (1 standard drink = 0.6 oz pur e alcohol) Comments No Sex and Gender Information Value Date Recorded Sex Assigned at Female 07/29/2024 12:55 PM EDT Legal Sex Female 9:05 PM EST Gender Identity Female 07/29/2024 12:55 PM EDT Sexual Orientation Straight 07/29/2024 12 :55 PM EDT documented as of this encounter Functional Status * Are you deaf or do you have serious difficulty hearing? Answer Date of Assessment Author No 07/29/2024 1:00 PM EDT Cassandra Arreaga RN * Are you blind or do you have serious difficulty seeing, even when wearing glasses? Answer Date of Assessment Author No 07/29/2024 1:00 PM EDT Cassandra Arreaga RN * Do you have serious difficulty walking or climbing stairs? Answer Date of Assessment Author No 07/29/2024 1:00 PM EDT Doles, As kali Salgado RN * Do you have serious difficulty dressing or bathing? Answer Date of Assessment Author No 07/29/2024 1:00 PM EDT Dolnarinder, As kali Salgado RN * Because of a physical, mental, or emotional condition, do you have serious difficulty doing errandsalone such as visiting the doctor? Answer Date of Assessment Author No 07/29/2024 1:00 PM EDT Dolnarinder, As kali Salgado RN documented as of this encounter Mental Status * Because of a physical, mental, or emotional condition, do you have serious difficulty concentrating, remembering, or making decisions? (5 years old or older) Answer Entry Date Author No 07/29/2024 1:00 PM EDT Dolnarinder, As kali Salgado RN documented in this encounter Plan of Treatment Upcoming Encounters Date Type Department Care Team (Late st Contact Info) Description 03/05/2025 8:00 AM EST Consult Gastroenterology - [address] [address] Irene Taylor NP [address] [address] documented as of this encounter Visit Diagnoses Not on filedocumented in this encounter Care Teams Cafeteria Director Relationship Specialty Start Date End Date Nasrin Vidal MD [address] [place] [address] PCP - General 11/14/20 documented as of this encounter
--- OUTSIDE RECORDS SUMMARY | 2025-02-14 18:13 | XMS_ITS | Clinical Summary ---
Author Organization [facility] Address [address] [place] [address] Care Team Providers Care Pony Rougher Name Role Phone Nasrin Vidal MD Primary Care Provider [phone] Allergies Active Allergy Reactions Criticality Noted Date [...] age to complete this topic Care Teams Pony Rougher Relationship Specialty Start Date End Date Nasrin Vidal MD [address] [facility] [place] [phone] PCP - General Silo Worker 11/14/20
== END 2025-02-14 17:11 | disposition home or self-care (01) ==
PROVIDERS: PCP Internal Medicine; Visit Provider Nurse Practitioner Family
DX: I10 Essential (primary) hypertension (principal); J06.9 Acute upper respiratory infection, unspecified

== ENCOUNTER 2025-02-14 14:57 | Outpatient (REF) | payer MEDICARE, SELFPAY ==
[2025-02-15 11:29] LABS: Resp Syncy Virus RNA Qual PCR NEGATIVE (Negative); SARS COV2 PCR INHOUSE NEGATIVE (Negative)
== END 2025-02-14 14:58 | disposition home or self-care (01) ==
LOC: HO.LAB 14:57
PROVIDERS: PCP Internal Medicine; Visit Provider Nurse Practitioner Family
DX: J06.9 Acute upper respiratory infection, unspecified (principal); Z87.891 Personal history of nicotine dependence
CPT/HCPCS: 87637; 99212

== ENCOUNTER 2025-02-15 10:06 | Outpatient (REF) | payer MEDICARE, SELFPAY ==
--- OUTSIDE RECORDS SUMMARY | 2025-02-15 12:22 | XMS_ITS | Clinical Summary ---
Author Organization [facility] Address [address] [place] [address] Care Team Providers Care Rn Hospital Name Role Phone Nasrin Vidal MD Primary Care Provider [phone] Allergies Active Allergy Reactions Criticality Noted Date [...] age to complete this topic Care Teams Rn Hospital Relationship Specialty Start Date End Date Nasrin Vidal MD [address] [facility] [place] [phone] PCP - General Cutter Head Sharpener 11/14/20
--- OUTSIDE RECORDS SUMMARY | 2025-02-15 12:22 | XMS_ITS | Encounter Summary ---
Author Organization [facility] Address [address] [place] [address] Care Team Providers Care Cage Unloader Name Role Phone Nasrin Vidal MD Primary Care Provider [phone] Encounter Details Date Type Department Care Team (Late st Contact Info) Description 02/11/2025 Results Follow-Up [facility] - [facility] [address] [facility] [address] [place] [phone] Kacie Longoria, OVIDIO [address] [place] [address] [address] [place] [phone] Social History Tobacco Use Types Packs/Day Years [...] 07/29/2024 1:00 PM EDT Dolnarinder, As kali Salgdao RN documented as of this encounter Mental [...] 8:00 AM EST Consult Gastroenterology - [address] [address] Irene Taylor NP [address] [address] documented as of this encounter Visit Diagnoses Not on filedocumented in this encounter Care Teams Cage Unloader Relationship Specialty Start Date End Date Nasrin Vidal MD [address] [place] [address] PCP - General 11/14/20 documented as of this encounter
--- OUTSIDE RECORDS SUMMARY | 2025-02-15 12:22 | XMS_ITS | Clinical Summary ---
Author Organization [facility] Address [address] [facility] [place] [address] Phone Care Team Providers Care Dry Cleaning Counter Clerk Name Role Phone Nasrin Vidal MD Primary Care Provider [phone] Allergies No known active allergies Medications atorvastatin [...] Department Care Team Description 02/11/2025 Results Follow-Up [facility] [address] [place] [address] Kacie Longoria NP 01/02/2025 7:30 AM EDT Ancillary Procedure [facility] [address] [place] [address] BRENNER (dyspnea on exertion) 12/17/2024 9:20 AM EDT Office Visit [facility] [address] [place] [address] Ernst Oates MD BRENNER (dyspnea on exertion) [...] [address] [place] [phone] Irene Taylor, OVIDIO [address] [facility] [address] [place] [address] Health Maintenance Due Date Last Done Comments [...] GEMUSE QTc 410 ms GEMUSE P Wave Alexander 45 degrees GEMUSE R Alexander 35 degrees GEMUSE T Alexander 34 degrees GEMUSE ECG Interpretation Normal sinus [...] probability of hip fracture of 5.8%. Code 07447 -------- FINAL REPORT -------- Dictated By: Timmy Askew Dictated Date: 10/08/2024 09:36 ET Assigned Physician: Timmy Askew Reviewed and Electronically Signed By: Timmy Askew Signed Date: 10/08/2024 09:38 ET Workstation ID: [id number] Transcribed By: Self Edit Transcribed Date: 10/08/2024 [...] density of the femurs bilaterally is 0.828 gm/mj1fnwpp is 82% of that of young normals [...] probability of hip fracture of 5.8%. Code 76258 -------- FINAL REPORT -------- Dictated By: Timmy Askew Dictated Date: 10/08/2024 09:36 ET Assigned Physician: Timmy Askew Reviewed and Electronically Signed By: Timmy Askew Signed Date: 10/08/2024 09:38 ET Workstation ID: [id number] Transcribed By: Self Edit Transcribed Date: 10/08/2024 [...] for biopsy. PQRI CPT II 3342F Code 86405, 15997 PQRI 225 CPT II 7025F TISSUE DENSITY: There are scattered areas of fibroglandular density. (BI-RADS category B) IMPRESSION: Benign. BI-RADS CATEGORY: 2 - BENIGN RECOMMENDATION: Screening bilateral mammogram is recommended in 1 year. Mammo Location: [facility], [address] [place] [address] -------- FINAL REPORT -------- Dictated By: Timmy Askew Dictated Date: 10/08/2024 07:40 ET Assigned Physician: Timmy Askew Reviewed and Electronically Signed By: Timmy Askew Signed Date: 10/08/2024 07:44 ET Workstation ID: [id number] Transcribed By: Self Edit Transcribed Date: 10/08/2024 [...] and CC projection is performed in the [employer] 2000-D unit. Computer aided detection utilizing the [...] MLO and CC projection is performed in thePropertybase 2000-D unit. Computer aided detection utilizing the FamelyDsystem was utilized. FINDINGS: The breasts are again [...] for biopsy. PQRI CPT II 3342F Code 30065, 02453 PQRI 225 CPT II 7025F TISSUE DENSITY: There are scattered areas of fibroglandular density.(BI-RADS category B) IMPRESSION: Benign. BI-RADS CATEGORY: 2 - BENIGN RECOMMENDATION: Screening bilateral mammogram is recommended in 1 year. Mammo Location: [facility], [address] [place] [address] -------- FINAL REPORT -------- Dictated By: Timmy Askew Dictated Date: 10/08/2024 07:40 ET Assigned Physician: Timmy Askew Reviewed and Electronically Signed By: Timmy Askew Signed Date: 10/08/2024 07:44 ET Workstation ID: [id number] Transcribed By: Self Edit Transcribed Date: 10/08/2024 07:40 ET us Nasrin Vidal MD IMG BI PROCEDURES Final Resul t from Last 3 Months or Most Recently Relevant to Health Maintenance Insurance Care Teams Dry Cleaning Counter Clerk Relationship Specialty Start Date End Date Nasrin Vidal MD [address] [facility] [place] PCP - General 11/14/20
== END 2025-02-15 10:07 | disposition home or self-care (01) ==
LOC: HO.LNP 10:06
PROVIDERS: Visit Provider Nurse Practitioner Family
DX: Z13.89 Encounter for screening for other disorder (principal)